=== PATIENT | male | born 1965 | race Caucasian/White ===

== ENCOUNTER 2020-03-14 19:01 | Emergency (ER) | payer MEDICAID ==
[~2020-03-14] VITALS: Ht 195.6 cm; Wt 95.4 kg
--- NOTE | 2020-03-14 19:11 | NUR ---
Note alan in EDM - 03/14/20 at 1912 by [facility] FROM HOME FOR FEVER, CHILLS, FATIGUE, BOCANEGRA, SORE THROAT, SOB,CP WITH DEEP BREATH FOR THE PAST 3 DAYS. EMS STARTED 20G IV RIGHT AC, 1,000 TYLENOL, 4MG ZOFRAN. PT IN BED IN GOWN WITH CONT CARDIC MONITOR, SPO2, BP Q 30 MIN, SIDE RAILS UP X2, CALL LIGHT IN REACH.
[2020-03-14] MEDS ORDERED: ACETAMINOPHEN 500 MG TABLET PO ONE (19:30)
[2020-03-14] MEDS ORDERED: SODIUM CHLORIDE 0.9% 1,000ML IVBOLUS ONE (19:30)
[2020-03-14 19:43] LABS: MEAN CORPUSCULAR HGB CONC 34.2 g/dL (33.2-36.2); MEAN PLATELET VOLUME 7.4 fL (7.4-10.4); PLATELET COUNT 271 x10^3/uL (130-400); RED BLOOD COUNT 4.68 x10^6/uL (4.38-5.82); RED CELL DISTRIBUTION WIDTH 13.4 % (9.4-14.8)
[2020-03-14] MEDS ORDERED: ACETAMINOPHEN 500 MG TABLET ONE (19:46)
[2020-03-14 19:47] LABS: MD YES
[2020-03-14 19:55] LABS: ALANINE AMINOTRANSFERASE 18 U/L (12-78); ALBUMIN 2.7 g/dL (3.4-5.0); ANION GAP 5 mmol/L (5-15); CALCIUM 8.7 mg/dL (8.5-10.1); CHLORIDE 104 mmol/L (98-107); CREATININE 0.92 mg/dL (0.7-1.3)
[2020-03-14 19:57] LABS: ALKALINE PHOSPHATASE 66 U/L (45-117); BILIRUBIN,TOTAL 0.6 mg/dL (0.2-1.0); TOTAL PROTEIN 7.1 g/dL (6.4-8.2)
[2020-03-14 20:48] VITALS: BP 103/51
[2020-03-14 20:52] LABS: BAND#(MANUAL) 0.55 x10^3/uL; BANDS%(MANUAL) 3 % (0-7); LYMPH#(MANUAL) 1.47 x10^3/uL (1-3.4); LYMPHS% (MANUAL) 8 % (22-44); MONOS#(MANUAL) 0.92 x10^3/uL (0.3-2.7); MONOS% (MANUAL) 5 % (2-9); REACTIVE LYMPHS # (MANUAL) 0.18 x10^3/uL (0-0); REACTIVE LYMPHS % (MANUAL) 1 % (0-0); SEG#(MANUAL) 15.27 x10^3/uL (1.8-6.8); SEGS% (MANUAL) 83 % (42-75)
[2020-03-14 20:53] LABS: <PLATELET ESTIMATE> ADEQUATE; <RBC MORPHOLOGY> NORMAL
[2020-03-14 20:54] LABS: <PLT MORPHOLOGY> NORMAL PLT MORPH
--- NOTE | 2020-03-14 20:54 | NUR ---
Report from RAUL aceves. Pt sleeping, RR equal and unlabored. Waiting for further orders from erp.
--- NOTE | 2020-03-14 21:24 | NUR ---
Pt c/o feeling nauseated, requesting medicine.
[2020-03-14] MEDS ORDERED: ONDANSETRON ODT 4 MG PO ONE (21:30)
[2020-03-14] MEDS ORDERED: ONDANSETRON ODT 4 MG ONE (21:44)
== END 2020-03-14 21:52 | disposition home or self-care (01) ==
LOC: ED 21:42
DX: U07.1 COVID-19 (principal); J18.9 Pneumonia, unspecified organism; J06.9 Acute upper respiratory infection, unspecified; R07.89 Other chest pain; R05 Cough; R50.9 Fever, unspecified; R09.81 Nasal congestion
CPT/HCPCS: 36415; 71045; 80053; 85025; 87635; 93005; 99285; J7030; Q0162

== ENCOUNTER 2020-09-23 08:01 | Inpatient (IN) | payer MEDICAID ==
[~2020-09-23] VITALS: Ht 195.6 cm; Wt 73.7 kg
--- NOTE | 2020-09-23 08:03 | NUR ---
pt biba with severe bilateral LE weakness, report taken from ems. pt c/o left hip and leg pain (shooting) and tingling/loss of sensation to bilateral legs x 2 days. pt states he is unable to move either leg, unable to move toes in last two days, has been stuck in his camper x 2 days. pt denies injury/trauma, hx sciatica. 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 pt a&o, resps even and unlabored. blanket provided. pt in gown. awaiting provider and orders.
[2020-09-23 08:53] LABS: BASOPHILS % (AUTO) 1 % (0-1); EOSINOPHILS % (AUTO) 2 % (1-7); LYMPHOCYTES % (AUTO) 18 % (22-44); MEAN CORPUSCULAR HEMOGLOBIN 30.5 pg (27.5-34.5); MEAN CORPUSCULAR HGB CONC 33.5 g/dL (33.2-36.2); MEAN PLATELET VOLUME 6.8 fL (7.4-10.4); MONOCYTES % (AUTO) 5 % (2-9); NEUTROPHILS % (AUTO) 74 % (42-75); PLATELET COUNT 304 x10^3/uL (130-400); RED BLOOD COUNT 5.02 x10^6/uL (4.38-5.82); RED CELL DISTRIBUTION WIDTH 13.8 % (9.4-14.8)
[2020-09-23 09:03] LABS: ALANINE AMINOTRANSFERASE 32 U/L (12-78); ALBUMIN 3.4 g/dL (3.4-5.0); ANION GAP 6 mmol/L (5-15); C-REACTIVE PROTEIN, QUANT 0.02 mg/dL (0.02-0.49); CALCIUM 8.8 mg/dL (8.5-10.1); CHLORIDE 111 mmol/L (98-107); CREATININE 0.75 mg/dL (0.7-1.3)
[2020-09-23 09:05] LABS: ALKALINE PHOSPHATASE 56 U/L (45-117); BILIRUBIN,TOTAL 0.3 mg/dL (0.2-1.0); TOTAL PROTEIN 6.8 g/dL (6.4-8.2)
--- NOTE | 2020-09-23 09:40 | NUR ---
pt instructed to void, urinal at bedside, RN to perform post void residual s/p void. pt verbalizes understanding. call light in reach.
[2020-09-23] MEDS ORDERED: KETOROLAC 30 MG/1 ML IM ONE (10:00)
--- NOTE | 2020-09-23 10:05 | NUR ---
PT SEEKING PAIN MED FOR LOWER EXT PAIN. PT UNABLE TO VOID. PT TAKEN TO MRI PRIOR TO RN RETURN WITH MEDICATION AND BLADDER SCAN, PT TO BE MEDICATED AND BLADDER SCANNED UPON RETURN.
[2020-09-23] MEDS ORDERED: KETOROLAC 60 MG/2 ML ONE (10:09)
[2020-09-23] MEDS ORDERED: MORPHINE SULFATE 4 MG/ML, 1ML ONE (10:21)
[2020-09-23] MEDS ORDERED: MORPHINE SULFATE 4 MG/ML, 1ML IVPush ONE (10:30)
--- NOTE | 2020-09-23 10:37 | NUR ---
GUIDE TRAVEL CALLED, STATES PT IS MOVING TOO MUCH IN MRI AND DEMANDING PAIN MEDICATION. LAW INFORMED. THIS RN MEDICATED PT IN MRI, MONITORED S/P ADMIN, PT TOLERATING MRI WELL AT THIS TIME.
--- NOTE | 2020-09-23 10:41 | NUR ---
Law notified that pt was unable to void prior to MRI, per settlement technician bladder is very enlarged and full, MD informed. ordered platt cath upon pt return.
[2020-09-23] MEDS ORDERED: LIDOCAINE 2%,20 ML JEL.PF.APP MM ONE ×2 (11:00→11:12)
--- NOTE | 2020-09-23 11:37 | NUR ---
PT UNABLE TO VOID WITH SECOND ATTEMPT UPON RETURN FROM MRI. BLADDER SCAN PERFORMED, BLADDER VOLUME READING >1000ML. ED AWARE. WILSON CATH INSERTED BY ALLIE JON, OBSERVED BY THIS RN. UROJECT ADMINISTERED PRIOR TO WILSON INSERTION BY ALLIE. STERILE TECHNIQUE MAINTAINED. AWAITING MRI READ AND DISPO.
--- NOTE | 2020-09-23 11:54 | NUR ---
PT IN MRI FOR THORACIC SPINE MRI.
--- NOTE | 2020-09-23 12:56 | NUR ---
pt remains in MRI
[2020-09-23] MEDS ORDERED: GADOTERATE 10 MMOL/20ML SYR ONE (13:11)
--- NOTE | 2020-09-23 13:14 | NUR ---
pt remains in MRI
[2020-09-23] MEDS ORDERED: hydrALAzine 20 MG/ML, 1ML IVPush PRN (13:30)
[2020-09-23] MEDS ORDERED: MELATONIN 5 MG TABLET PO PRN (13:30)
[2020-09-23] MEDS ORDERED: BISACODYL 10 MG SUPP PR PRN (13:30)
[2020-09-23] MEDS ORDERED: ONDANSETRON 2MG/ML, 2ML IVPush PRN (13:30)
--- NOTE | 2020-09-23 13:31 | NUR ---
report given to RAUL Scott who is assuming care, pt remains in MRI at this time.
--- NOTE | 2020-09-23 13:32 | NUR ---
REC REPORT PT IN MRI
[2020-09-23 14:30] LABS: MICROSCOPIC NOT IND
[2020-09-23] MEDS ORDERED: methylPREDNISolone SOD SUCC 125 MG/2 ML IVPush SCH (17:00)
[2020-09-23 18:22] LABS: HCT (SEDRATE) 44.8 % (39.2-51.8)
[2020-09-23] MEDS: GABAPENTIN 100 MG CAPSULE PO SCH ×2 (18:27→22:13)
[2020-09-23] MEDS ORDERED: AZITHROMYCIN 500 MG in SODIUM CHLORIDE 0.9% 250 ML IV SCH ×2 (18:30→21:00)
[2020-09-23] MEDS ORDERED: CEFTRIAXONE 2 GM in DEXTROSE 5% 50 ML IVPB SCH ×2 (18:30→21:00)
[2020-09-23] MEDS ORDERED: methylPREDNISolone SOD SUCC 125 MG/2 ML IVPush ONE (19:00)
[2020-09-23] MEDS ORDERED: methylPREDNISolone SOD SUCC 125 MG/2 ML ONE (19:00)
[2020-09-23 21:58] VITALS: BP 133/77
[2020-09-23] MEDS: CEFTRIAXONE 2 GM in DEXTROSE 5% 50 ML IVPB SCH (22:06)
[2020-09-23] MEDS: FAMOTIDINE 20 MG TABLET PO SCH (22:13)
[2020-09-23] MEDS ORDERED: OMEP20TA62 PO (22:27)
[2020-09-23] MEDS: AZITHROMYCIN 500 MG in SODIUM CHLORIDE 0.9% 250 ML IV SCH (22:46)
[2020-09-23] MEDS: OXYcodone IR 5MG TABLET PO PRN (23:33)
[2020-09-23] MEDS: TEMAZEPAM 15 MG CAPSULE PO PRN (23:33)
[2020-09-24 03:24] VITALS: BP 130/77
[2020-09-24 05:08] LABS: BASOPHILS % (AUTO) 1 % (0-1); EOSINOPHILS % (AUTO) 0 % (1-7); LYMPHOCYTES % (AUTO) 11 % (22-44); MEAN CORPUSCULAR HEMOGLOBIN 30.4 pg (27.5-34.5); MEAN CORPUSCULAR HGB CONC 33.9 g/dL (33.2-36.2); MEAN PLATELET VOLUME 7.2 fL (7.4-10.4); MONOCYTES % (AUTO) 1 % (2-9); NEUTROPHILS % (AUTO) 87 % (42-75); PLATELET COUNT 294 x10^3/uL (130-400); RED BLOOD COUNT 5.09 x10^6/uL (4.38-5.82); RED CELL DISTRIBUTION WIDTH 13.7 % (9.4-14.8)
[2020-09-24 05:26] LABS: ANION GAP 5 mmol/L (5-15); CHLORIDE 111 mmol/L (98-107)
[2020-09-24 05:29] LABS: CREATININE 0.95 mg/dL (0.7-1.3)
[2020-09-24 07:25] VITALS: BP 126/74
[2020-09-24] MEDS ORDERED: CEFTRIAXONE 1,000 MG IV ONE (09:00)
[2020-09-24] MEDS: GABAPENTIN 100 MG CAPSULE PO SCH (09:26)
[2020-09-24] MEDS: methylPREDNISolone SOD SUCC 125 MG/2 ML IVPush SCH ×2 (09:26→19:31)
[2020-09-24] MEDS: FAMOTIDINE 20 MG TABLET PO SCH ×2 (09:26→21:32)
[2020-09-24 12:28] VITALS: BP 140/73
[2020-09-24] MEDS ORDERED: GADOTERATE 10 MMOL/20ML SYR ONE (15:40)
[2020-09-24] MEDS: GABAPENTIN 300 MG CAPSULE PO SCH ×2 (16:42→21:32)
[2020-09-24] MEDS: OXYcodone IR 5MG TABLET PO PRN (19:59)
[2020-09-24] MEDS: CEFTRIAXONE 2 GM in DEXTROSE 5% 50 ML IVPB SCH (21:31)
[2020-09-24] MEDS: TEMAZEPAM 15 MG CAPSULE PO PRN (21:31)
[2020-09-24] MEDS: INSULIN REGULAR 100 UNITS/ML, 3ML VIAL SQ-INSULIN SCH (21:42)
[2020-09-24 21:47] VITALS: BP 169/91
[2020-09-24] MEDS: AZITHROMYCIN 500 MG in SODIUM CHLORIDE 0.9% 250 ML IV SCH (22:51)
[2020-09-25 00:04] VITALS: BP 158/96
[2020-09-25] MEDS: OXYcodone IR 5MG TABLET PO PRN ×3 (05:35→15:54)
[2020-09-25 07:07] VITALS: BP 172/98
[2020-09-25] MEDS: INSULIN REGULAR 100 UNITS/ML, 3ML VIAL SQ-INSULIN SCH ×4 (08:10→21:00)
[2020-09-25] MEDS: methylPREDNISolone SOD SUCC 125 MG/2 ML IVPush SCH ×2 (08:11→19:28)
[2020-09-25] MEDS: GABAPENTIN 300 MG CAPSULE PO SCH ×3 (08:11→21:08)
[2020-09-25] MEDS: ACETAMINOPHEN 325 MG TABLET PO PRN (08:11)
[2020-09-25] MEDS: POLYETHYLENE GLYCOL 17 GM PACKET PO PRN (08:11)
[2020-09-25] MEDS: DOCUSATE 100 MG CAPSULE PO PRN (08:11)
[2020-09-25] MEDS: FAMOTIDINE 20 MG TABLET PO SCH ×2 (08:11→21:08)
[2020-09-25] MEDS: MORPHINE SULFATE 4 MG/ML, 1ML IVPush PRN ×3 (08:44→19:28)
[2020-09-25 12:24] VITALS: BP 166/93
[2020-09-25 19:14] VITALS: BP 155/78
[2020-09-25] MEDS: CEFTRIAXONE 2 GM in DEXTROSE 5% 50 ML IVPB SCH (22:20)
[2020-09-25] MEDS: AZITHROMYCIN 500 MG in SODIUM CHLORIDE 0.9% 250 ML IV SCH (22:48)
[2020-09-26 00:41] VITALS: BP 142/77
[2020-09-26] MEDS: OXYcodone IR 5MG TABLET PO PRN ×2 (00:44→08:21)
[2020-09-26] MEDS: INSULIN REGULAR 100 UNITS/ML, 3ML VIAL SQ-INSULIN SCH ×4 (07:49→20:16)
[2020-09-26 07:50] VITALS: BP 118/73
[2020-09-26] MEDS: methylPREDNISolone SOD SUCC 125 MG/2 ML IVPush SCH ×2 (08:20→20:15)
[2020-09-26] MEDS: GABAPENTIN 300 MG CAPSULE PO SCH ×3 (08:20→20:15)
[2020-09-26] MEDS: FAMOTIDINE 20 MG TABLET PO SCH ×2 (08:21→20:14)
[2020-09-26] MEDS: MORPHINE SULFATE 4 MG/ML, 1ML IVPush PRN ×3 (10:16→20:15)
[2020-09-26] MEDS ORDERED: FLUMAZENIL 0.1 MG/1 ML, 5ML ONE (12:31)
[2020-09-26] MEDS ORDERED: NALOXONE 1 MG/ML, 2ML ONE (12:31)
[2020-09-26] MEDS ORDERED: MIDAZOLAM 1 MG/ML, 5ML ONE (12:31)
[2020-09-26] MEDS ORDERED: FENTANYL PF 100 MCG/2ML ONE (12:31)
[2020-09-26 14:03] VITALS: BP 136/85
[2020-09-26 14:14] LABS: GLUCOSE, CSF 82 mg/dL (40-80); TOTAL PROTEIN,CSF 115 mg/dL (15-45)
[2020-09-26 19:02] LABS: ANA SCREEN NEGATIVE (Negative)
[2020-09-26 19:15] VITALS: BP 154/70
[2020-09-26] MEDS: CEFTRIAXONE 2 GM in DEXTROSE 5% 50 ML IVPB SCH (21:41)
[2020-09-26] MEDS: AZITHROMYCIN 500 MG in SODIUM CHLORIDE 0.9% 250 ML IV SCH (22:24)
[2020-09-26] MEDS: TEMAZEPAM 15 MG CAPSULE PO PRN (23:28)
[2020-09-27] MEDS: MORPHINE SULFATE 4 MG/ML, 1ML IVPush PRN ×4 (00:04→20:28)
[2020-09-27 03:47] VITALS: BP 142/77
[2020-09-27] MEDS: GABAPENTIN 300 MG CAPSULE PO SCH (08:32)
[2020-09-27] MEDS: methylPREDNISolone SOD SUCC 125 MG/2 ML IVPush SCH ×2 (08:32→20:30)
[2020-09-27] MEDS: FAMOTIDINE 20 MG TABLET PO SCH ×2 (08:32→20:27)
[2020-09-27] MEDS: INSULIN REGULAR 100 UNITS/ML, 3ML VIAL SQ-INSULIN SCH ×4 (08:37→20:29)
[2020-09-27 08:51] VITALS: BP 135/78
[2020-09-27] MEDS: AMITRIPTYLINE 10 MG TABLET PO SCH ×2 (12:06→20:27)
[2020-09-27 15:29] VITALS: BP 136/63
[2020-09-27 18:33] VITALS: BP 155/65
[2020-09-27] MEDS: TEMAZEPAM 15 MG CAPSULE PO PRN (20:26)
[2020-09-27] MEDS: ACETAMINOPHEN 325 MG TABLET PO PRN (20:27)
[2020-09-27] MEDS: DOCUSATE 100 MG CAPSULE PO PRN (20:27)
[2020-09-27] MEDS: POLYETHYLENE GLYCOL 17 GM PACKET PO PRN (20:29)
[2020-09-27] MEDS: OXYcodone IR 5MG TABLET PO PRN (20:54)
[2020-09-27] MEDS: CEFTRIAXONE 2 GM in DEXTROSE 5% 50 ML IVPB SCH (21:56)
[2020-09-27] MEDS: AZITHROMYCIN 500 MG in SODIUM CHLORIDE 0.9% 250 ML IV SCH (23:21)
[2020-09-28 00:36] VITALS: BP 153/81
[2020-09-28] MEDS: MORPHINE SULFATE 4 MG/ML, 1ML IVPush PRN ×3 (05:49→23:37)
[2020-09-28] MEDS: OXYcodone IR 5MG TABLET PO PRN ×2 (06:39→22:14)
[2020-09-28 07:40] VITALS: BP 151/93
[2020-09-28] MEDS: INSULIN REGULAR 100 UNITS/ML, 3ML VIAL SQ-INSULIN SCH ×4 (08:05→20:54)
[2020-09-28] MEDS: POLYETHYLENE GLYCOL 17 GM PACKET PO PRN (09:24)
[2020-09-28] MEDS: FAMOTIDINE 20 MG TABLET PO SCH ×2 (09:24→20:49)
[2020-09-28 11:36] LABS: BASOPHILS % (AUTO) 0 % (0-1); EOSINOPHILS % (AUTO) 0 % (1-7); LYMPHOCYTES % (AUTO) 7 % (22-44); MEAN CORPUSCULAR HEMOGLOBIN 30.4 pg (27.5-34.5); MEAN CORPUSCULAR HGB CONC 33.6 g/dL (33.2-36.2); MEAN PLATELET VOLUME 7.4 fL (7.4-10.4); MONOCYTES % (AUTO) 5 % (2-9); NEUTROPHILS % (AUTO) 88 % (42-75); PLATELET COUNT 228 x10^3/uL (130-400); RED BLOOD COUNT 4.94 x10^6/uL (4.38-5.82); RED CELL DISTRIBUTION WIDTH 13.3 % (9.4-14.8)
[2020-09-28] MEDS: BISACODYL 10 MG SUPP PR SCH (14:22)
[2020-09-28 14:23] VITALS: BP 165/90
[2020-09-28] MEDS ORDERED: ALBUMIN HUMAN 5% IV ONE (14:30)
[2020-09-28] MEDS ORDERED: CALCIUM GLUCONATE 4.6 MEQ/10 ML IVPush ONE (14:30)
[2020-09-28] MEDS ORDERED: CALCIUM GLUCONATE 18.4 MEQ in SODIUM CHLORIDE 0.9% 100 ML IV ONE (15:00)
[2020-09-28] MEDS ORDERED: CALCIUM GLUCONATE 4.6 MEQ/10 ML IV ONE (15:30)
[2020-09-28 19:31] VITALS: BP 153/83
[2020-09-28] MEDS: AMITRIPTYLINE 10 MG TABLET PO SCH (20:49)
[2020-09-28] MEDS: CEFTRIAXONE 2 GM in DEXTROSE 5% 50 ML IVPB SCH (22:13)
[2020-09-28] MEDS: AZITHROMYCIN 500 MG in SODIUM CHLORIDE 0.9% 250 ML IV SCH (23:01)
[2020-09-29] VITALS (8 sets, daily range): BP systolic 129–174; BP diastolic 69–84
[2020-09-29] MEDS: MORPHINE SULFATE 4 MG/ML, 1ML IVPush PRN ×3 (05:27→22:15)
[2020-09-29] MEDS: DOCUSATE 100 MG CAPSULE PO PRN (05:27)
[2020-09-29] MEDS: INSULIN REGULAR 100 UNITS/ML, 3ML VIAL SQ-INSULIN SCH ×4 (07:00→20:34)
[2020-09-29 07:29] LABS: BASOPHILS % (AUTO) 0 % (0-1); EOSINOPHILS % (AUTO) 0 % (1-7); LYMPHOCYTES % (AUTO) 8 % (22-44); MEAN CORPUSCULAR HEMOGLOBIN 30.3 pg (27.5-34.5); MEAN CORPUSCULAR HGB CONC 33.6 g/dL (33.2-36.2); MEAN PLATELET VOLUME 7.4 fL (7.4-10.4); MONOCYTES % (AUTO) 3 % (2-9); NEUTROPHILS % (AUTO) 89 % (42-75); PLATELET COUNT 213 x10^3/uL (130-400); RED BLOOD COUNT 4.89 x10^6/uL (4.38-5.82); RED CELL DISTRIBUTION WIDTH 13.7 % (9.4-14.8)
[2020-09-29 07:37] LABS: ALANINE AMINOTRANSFERASE 23 U/L (12-78); ALBUMIN 3.1 g/dL (3.4-5.0); ANION GAP 5 mmol/L (5-15); CALCIUM 8.1 mg/dL (8.5-10.1); CHLORIDE 110 mmol/L (98-107); CREATININE 0.87 mg/dL (0.7-1.3)
[2020-09-29 07:40] LABS: ALKALINE PHOSPHATASE 22 U/L (45-117); BILIRUBIN,TOTAL 0.3 mg/dL (0.2-1.0); TOTAL PROTEIN 4.9 g/dL (6.4-8.2)
[2020-09-29] MEDS ORDERED: methylPREDNISolone SOD SUCC 125 MG/2 ML ONE (07:46)
[2020-09-29] MEDS: POLYETHYLENE GLYCOL 17 GM PACKET PO SCH (07:54)
[2020-09-29] MEDS: FAMOTIDINE 20 MG TABLET PO SCH ×2 (07:54→20:32)
[2020-09-29] MEDS: BISACODYL 10 MG SUPP PR SCH (08:18)
[2020-09-29] MEDS ORDERED: CALCIUM GLUCONATE 4.6 MEQ/10 ML IV ONE (09:00)
[2020-09-29] MEDS ORDERED: METOCLOPRAMIDE 5 MG/ML, 2ML IVPush ONE (09:30)
[2020-09-29] MEDS ORDERED: PINK LADY ENEMA 490 ML BOTTLE PR ONE (09:30)
[2020-09-29] MEDS: PREGABALIN 25 MG CAPSULE PO SCH ×3 (11:59→20:32)
[2020-09-29] MEDS: AMITRIPTYLINE 10 MG TABLET PO SCH (20:33)
[2020-09-29] MEDS: CEFTRIAXONE 2 GM in DEXTROSE 5% 50 ML IVPB SCH (22:15)
[2020-09-29] MEDS: AZITHROMYCIN 500 MG in SODIUM CHLORIDE 0.9% 250 ML IV SCH (22:58)
[2020-09-30] VITALS (17 sets, daily range): BP systolic 116–153; BP diastolic 70–84
[2020-09-30] MEDS: MORPHINE SULFATE 4 MG/ML, 1ML IVPush PRN ×3 (05:05→19:55)
[2020-09-30 05:34] LABS: BASOPHILS % (AUTO) 0 % (0-1); EOSINOPHILS % (AUTO) 0 % (1-7); LYMPHOCYTES % (AUTO) 9 % (22-44); MEAN CORPUSCULAR HEMOGLOBIN 30.3 pg (27.5-34.5); MEAN CORPUSCULAR HGB CONC 33.7 g/dL (33.2-36.2); MEAN PLATELET VOLUME 7.6 fL (7.4-10.4); MONOCYTES % (AUTO) 8 % (2-9); NEUTROPHILS % (AUTO) 83 % (42-75); PLATELET COUNT 207 x10^3/uL (130-400); RED BLOOD COUNT 4.82 x10^6/uL (4.38-5.82); RED CELL DISTRIBUTION WIDTH 13.6 % (9.4-14.8)
[2020-09-30 05:55] LABS: ALBUMIN 2.7 g/dL (3.4-5.0); ANION GAP 4 mmol/L (5-15); CALCIUM 8.5 mg/dL (8.5-10.1); CHLORIDE 107 mmol/L (98-107)
[2020-09-30 05:59] LABS: ALANINE AMINOTRANSFERASE 26 U/L (12-78); ALKALINE PHOSPHATASE 35 U/L (45-117); BILIRUBIN,TOTAL 0.3 mg/dL (0.2-1.0); CREATININE 0.87 mg/dL (0.7-1.3)
[2020-09-30] MEDS: INSULIN REGULAR 100 UNITS/ML, 3ML VIAL SQ-INSULIN SCH ×3 (07:00→16:00)
[2020-09-30] MEDS: PREGABALIN 25 MG CAPSULE PO SCH ×3 (07:29→20:48)
[2020-09-30] MEDS: POLYETHYLENE GLYCOL 17 GM PACKET PO SCH (07:29)
[2020-09-30] MEDS: BISACODYL 10 MG SUPP PR SCH (07:29)
[2020-09-30] MEDS: FAMOTIDINE 20 MG TABLET PO SCH ×2 (07:29→20:48)
[2020-09-30] MEDS ORDERED: CALCIUM GLUCONATE 4.6 MEQ/10 ML IV ONE (15:00)
[2020-09-30] MEDS ORDERED: DIPHENHYDRAMINE 50 MG/ML, 1ML IVPush ONE (16:00)
[2020-09-30] MEDS: METOCLOPRAMIDE 10MG TABLET PO SCH ×2 (17:35→20:47)
[2020-09-30] MEDS: AMITRIPTYLINE 10 MG TABLET PO SCH (20:47)
[2020-09-30] MEDS: TEMAZEPAM 15 MG CAPSULE PO PRN (20:48)
[2020-10-01] VITALS (23 sets, daily range): BP systolic 92–139; BP diastolic 55–79
[2020-10-01] MEDS: MORPHINE SULFATE 4 MG/ML, 1ML IVPush PRN (03:19)
[2020-10-01 04:43] LABS: MEAN CORPUSCULAR HEMOGLOBIN 30.5 pg (27.5-34.5); MEAN CORPUSCULAR HGB CONC 33.7 g/dL (33.2-36.2); MEAN PLATELET VOLUME 7.6 fL (7.4-10.4); PLATELET COUNT 156 x10^3/uL (130-400); RED BLOOD COUNT 4.78 x10^6/uL (4.38-5.82); RED CELL DISTRIBUTION WIDTH 13.8 % (9.4-14.8)
[2020-10-01 04:54] LABS: ALBUMIN 2.4 g/dL (3.4-5.0); ANION GAP 1 mmol/L (5-15); CALCIUM 8.1 mg/dL (8.5-10.1); CHLORIDE 104 mmol/L (98-107)
[2020-10-01 04:58] LABS: ALANINE AMINOTRANSFERASE 42 U/L (12-78); ALKALINE PHOSPHATASE 42 U/L (45-117); BILIRUBIN,TOTAL 0.4 mg/dL (0.2-1.0); CREATININE 0.73 mg/dL (0.7-1.3); TOTAL PROTEIN 4.9 g/dL (6.4-8.2)
[2020-10-01 05:44] LABS: <PLATELET ESTIMATE> DECREASED; <PLT MORPHOLOGY> NORMAL PLT MORPH; <RBC MORPHOLOGY> NORMAL; BAND#(MANUAL) 0.25 x10^3/uL; BANDS%(MANUAL) 2 % (0-7); LYMPH#(MANUAL) 2.73 x10^3/uL (1-3.4); LYMPHS% (MANUAL) 22 % (22-44); METAMYELOCYTES# (MANUAL) 0.12 x10^3/uL (0-0); METAMYELOCYTES% (MANUAL) 1 % (0-1); MONOS#(MANUAL) 0.62 x10^3/uL (0.3-2.7); MONOS% (MANUAL) 5 % (2-9)
[2020-10-01 05:46] LABS: MYELOCYTES# (MANUAL) 0.12 x10^3/uL (0-0); MYELOCYTES% (MANUAL) 1 % (0-0); SEG#(MANUAL) 8.56 x10^3/uL (1.8-6.8); SEGS% (MANUAL) 69 % (42-75)
[2020-10-01] MEDS: METOCLOPRAMIDE 10MG TABLET PO SCH ×4 (06:04→21:11)
[2020-10-01] MEDS: FAMOTIDINE 20 MG TABLET PO SCH ×2 (08:32→21:11)
[2020-10-01] MEDS: BISACODYL 10 MG SUPP PR SCH (08:32)
[2020-10-01] MEDS: PREGABALIN 25 MG CAPSULE PO SCH ×3 (08:32→21:11)
[2020-10-01] MEDS: POLYETHYLENE GLYCOL 17 GM PACKET PO SCH (08:32)
[2020-10-01] MEDS: LORazepam 2 MG/ML, 1ML IVPush PRN ×3 (08:42→21:10)
[2020-10-01] MEDS ORDERED: CALCIUM GLUCONATE 4.6 MEQ/10 ML IVPush ONE (12:00)
[2020-10-01] MEDS ORDERED: DIPHENHYDRAMINE 50 MG/ML, 1ML IVPush ONE (12:00)
[2020-10-01] MEDS ORDERED: PINK LADY ENEMA 490 ML BOTTLE PR ONE (13:30)
[2020-10-01] MEDS ORDERED: DIPHENHYDRAMINE 50 MG/ML, 1ML ONE (16:40)
[2020-10-01] MEDS: AMITRIPTYLINE 10 MG TABLET PO SCH (21:10)
[2020-10-01] MEDS: TEMAZEPAM 15 MG CAPSULE PO PRN (21:10)
[2020-10-02] VITALS (9 sets, daily range): BP systolic 92–134; BP diastolic 55–80
[2020-10-02 05:12] LABS: BASOPHILS % (AUTO) 0 % (0-1); EOSINOPHILS % (AUTO) 4 % (1-7); LYMPHOCYTES % (AUTO) 18 % (22-44); MEAN CORPUSCULAR HEMOGLOBIN 30.2 pg (27.5-34.5); MEAN PLATELET VOLUME 7.5 fL (7.4-10.4); MONOCYTES % (AUTO) 10 % (2-9); NEUTROPHILS % (AUTO) 68 % (42-75); PLATELET COUNT 146 x10^3/uL (130-400); RED BLOOD COUNT 4.95 x10^6/uL (4.38-5.82)
[2020-10-02 05:20] LABS: ALANINE AMINOTRANSFERASE 54 U/L (12-78); ALBUMIN 2.5 g/dL (3.4-5.0); ANION GAP 3 mmol/L (5-15); CALCIUM 8.1 mg/dL (8.5-10.1); CHLORIDE 103 mmol/L (98-107); CREATININE 0.78 mg/dL (0.7-1.3)
[2020-10-02 05:22] LABS: ALKALINE PHOSPHATASE 42 U/L (45-117); BILIRUBIN,TOTAL 0.4 mg/dL (0.2-1.0)
[2020-10-02] MEDS: MORPHINE SULFATE 4 MG/ML, 1ML IVPush PRN ×3 (05:27→17:24)
[2020-10-02] MEDS: POLYETHYLENE GLYCOL 17 GM PACKET PO SCH (08:15)
[2020-10-02] MEDS: PREGABALIN 25 MG CAPSULE PO SCH ×3 (08:15→20:07)
[2020-10-02] MEDS: FAMOTIDINE 20 MG TABLET PO SCH ×2 (08:15→20:08)
[2020-10-02] MEDS: METOCLOPRAMIDE 10MG TABLET PO SCH ×4 (08:15→20:07)
[2020-10-02] MEDS: LORazepam 2 MG/ML, 1ML IVPush PRN ×2 (08:16→20:07)
[2020-10-02] MEDS: BISACODYL 10 MG SUPP PR SCH (08:17)
[2020-10-02] MEDS ORDERED: DIPHENHYDRAMINE 50 MG/ML, 1ML IVPush ONE (09:00)
[2020-10-02] MEDS ORDERED: CALCIUM GLUCONATE 4.6 MEQ/10 ML IV ONE (09:00)
[2020-10-02] MEDS ORDERED: ALBUMIN HUMAN 5% 3,000 ML IV ONE (09:00)
[2020-10-02] MEDS ORDERED: ALBUMIN HUMAN 25% 100 ML IV ONE (11:30)
[2020-10-02] MEDS: TEMAZEPAM 15 MG CAPSULE PO PRN (20:08)
[2020-10-02] MEDS: AMITRIPTYLINE 25 MG TABLET PO SCH (20:08)
[2020-10-03 00:25] VITALS: BP 106/68
[2020-10-03] MEDS: MORPHINE SULFATE 4 MG/ML, 1ML IVPush PRN ×2 (03:13→07:54)
[2020-10-03] MEDS ORDERED: FUROSEMIDE 20 MG/2 ML IV ONE (07:30)
[2020-10-03] MEDS: LORazepam 2 MG/ML, 1ML IVPush PRN (07:54)
[2020-10-03] MEDS: FAMOTIDINE 20 MG TABLET PO SCH ×2 (07:54→20:23)
[2020-10-03] MEDS: METOCLOPRAMIDE 10MG TABLET PO SCH ×4 (07:55→22:54)
[2020-10-03] MEDS: PREGABALIN 25 MG CAPSULE PO SCH ×3 (07:55→22:54)
[2020-10-03] MEDS: POLYETHYLENE GLYCOL 17 GM PACKET PO SCH (07:56)
[2020-10-03] MEDS: BISACODYL 10 MG SUPP PR SCH (07:56)
[2020-10-03 08:54] VITALS: BP 105/70
[2020-10-03] MEDS: OXYcodone IR 5MG TABLET PO PRN ×3 (11:15→22:54)
[2020-10-03] MEDS ORDERED: SODIUM CHLORIDE 0.9%, 500ML IVBOLUS ONE (14:30)
[2020-10-03 14:44] VITALS: BP 95/60
[2020-10-03 19:06] VITALS: BP 112/64
[2020-10-03] MEDS: AMITRIPTYLINE 25 MG TABLET PO SCH (20:23)
[2020-10-03] MEDS: TEMAZEPAM 15 MG CAPSULE PO PRN (20:23)
[2020-10-04 00:55] VITALS: BP 116/69
[2020-10-04] MEDS: OXYcodone IR 5MG TABLET PO PRN ×4 (04:04→20:08)
[2020-10-04 08:10] VITALS: BP 110/70
[2020-10-04] MEDS: PREGABALIN 25 MG CAPSULE PO SCH ×3 (08:36→20:11)
[2020-10-04] MEDS: METOCLOPRAMIDE 10MG TABLET PO SCH ×4 (08:36→20:11)
[2020-10-04] MEDS: FAMOTIDINE 20 MG TABLET PO SCH ×2 (08:36→20:11)
[2020-10-04] MEDS: POLYETHYLENE GLYCOL 17 GM PACKET PO SCH (08:38)
[2020-10-04] MEDS: BISACODYL 10 MG SUPP PR SCH (08:38)
[2020-10-04 11:04] VITALS: BP 101/70
[2020-10-04 13:17] VITALS: BP 120/75
[2020-10-04 19:03] VITALS: BP 109/62
[2020-10-04] MEDS: TEMAZEPAM 15 MG CAPSULE PO PRN (20:15)
[2020-10-04] MEDS ORDERED: AMITRIPTYLINE 50 MG TABLET PO SCH (21:00)
[2020-10-05 01:56] VITALS: BP 114/69
[2020-10-05] MEDS: OXYcodone IR 5MG TABLET PO PRN ×3 (04:27→17:03)
[2020-10-05] MEDS: METOCLOPRAMIDE 10MG TABLET PO SCH ×3 (06:13→17:03)
[2020-10-05 07:28] VITALS: BP 102/69
[2020-10-05] MEDS: BISACODYL 10 MG SUPP PR SCH (07:34)
[2020-10-05] MEDS: POLYETHYLENE GLYCOL 17 GM PACKET PO SCH (07:34)
[2020-10-05] MEDS: PREGABALIN 25 MG CAPSULE PO SCH (07:34)
[2020-10-05] MEDS: FAMOTIDINE 20 MG TABLET PO SCH (07:34)
[2020-10-05] MEDS: ACETAMINOPHEN 325 MG TABLET PO PRN (07:34)
[2020-10-05] MEDS: LORazepam 2 MG/ML, 1ML IVPush PRN ×2 (07:35→13:22)
[2020-10-05] MEDS ORDERED: PREGABALIN 25 MG CAPSULE PO SCH (12:00)
[2020-10-05 12:56] VITALS: BP 121/77
[2020-10-05] MEDS ORDERED: PREG100C PO (16:11)
[2020-10-05] MEDS ORDERED: MORP-30 PO (16:11)
[2020-10-05] MEDS ORDERED: PREG50CA PO (16:22)
[2020-10-05] MEDS ORDERED: PREGABALIN 100 MG CAPSULE PO SCH (21:00)
[2020-10-07] MEDS ORDERED: CARV3.1212 PO (10:23)
== END 2020-10-05 18:17 | DRG 97 ==
LOC: SUATTDRO 13:13 → ED 14:42 → EDIP 14:47 → 4WST 15:38 → 4EST 10-05 10:05
PROVIDERS: ADMIT Internal Medicine; ATTEND Hospitalist
PROC: 00JU3ZZ Inspection of Spinal Canal, Percutaneous Approach (ICD-10-PCS; principal; 2020-09-26)
PROC: 0T9B30Z Drainage of Bladder with Drainage Device, Percutaneous Approach (ICD-10-PCS; 2020-09-26)
PROC: 02HV33Z Insertion of Infusion Device into Superior Vena Cava, Percutaneous Approach (ICD-10-PCS; 2020-09-28)
PROC: B548ZZA Ultrasonography of Superior Vena Cava, Guidance (ICD-10-PCS; 2020-09-28)
DX: G37.3 Acute transverse myelitis in demyelinating disease of central nervous system (principal); J18.9 Pneumonia, unspecified organism; F19.20 Other psychoactive substance dependence, uncomplicated; K56.7 Ileus, unspecified; E83.39 Other disorders of phosphorus metabolism; F12.10 Cannabis abuse, uncomplicated; F17.200 Nicotine dependence, unspecified, uncomplicated; G82.20 Paraplegia, unspecified; Z20.822 Contact with and (suspected) exposure to COVID-19; M54.30 Sciatica, unspecified side; R32 Unspecified urinary incontinence; Z79.899 Other long term (current) drug therapy; K29.70 Gastritis, unspecified, without bleeding; I95.9 Hypotension, unspecified; Z90.49 Acquired absence of other specified parts of digestive tract; E11.9 Type 2 diabetes mellitus without complications; I10 Essential (primary) hypertension; I99.9 Unspecified disorder of circulatory system; E78.5 Hyperlipidemia, unspecified; Z79.891 Long term (current) use of opiate analgesic; Z79.01 Long term (current) use of anticoagulants; Z80.8 Family history of malignant neoplasm of other organs or systems; Z80.9 Family history of malignant neoplasm, unspecified
CPT/HCPCS: 36415; 36514; 36556; 62270; 62328; 70553; 72157; 72158; 76937; 80048; 80053; 81003; 82040; 82042; 82164; 82550; 82784; 82945; 82962; 83735; 83873; 84100; 84155; 84156; 84157; 84165; 84166; 85025; 85384; 85651; 86038; 86140; 86255; 86645; 86694; 86695; 86696; 86762; 86777; 86778; 86850; 86900; 87806; 89051; 96374; 96375; 96376; 99291; G0378; J0456; J0610; J0696; J1815; J2250; J2405; J2930; J3010; P9045; P9047; U0005; A9575; C1751; G0475; J0360; J1200; J1642; J1940; J2060; J2270; J2310; J2765; J7040; J7050; P9017; Q0181; U0003

== ENCOUNTER 2020-10-06 01:47 | Inpatient (IN) | payer MEDICAID ==
[~2020-10-06] VITALS: Ht 195.6 cm; Wt 97.5 kg
[~2020-10-06 01:47] MED LIST: MORP-30 PO; OMEP20TA62 PO; PREG100C PO; PREG50CA PO
--- NOTE | 2020-10-06 01:51 | NUR ---
INITIAL PT CONTACT. PT FATUMA C/O UNCONTROLLED PAIN. PT D/C FROM HOSPITAL A FEW HOURS AGO, SENT TO [facility], THEY ARE UNABLE TO HAVE SCRIPT FOR PAIN MEDICATION FILLED SO UNABLE TO ACCEPT PT AT FACILITY PER EMS. EMS STATES PT "I WAS ON 30MG OF MORPHINE A DAY. THIS ALL STARTED AFTER I HAD A PUNCTURE ON MY BACK 2 WEEKS AGO, I CAN'T WALK, I BARELY USE A WHEELCHAIR THE RIGHT WAY. MY LEGS DONT MOVE WELL AT ALL AND I HAVE SOME NUMBNESS TOO." PT GIVEN 4MG MORPHINE WITH EMS, NO RELIEF OR CHANGE IN PAIN. PT SUPINE ON GURNEY, IN OBVIOUS DISCOMFORT, UNABLE TO STAY STILL ON GURNEY. PT PLACED ON CONTINUOUS MONITORING. CALL LIGHT AND PERSONAL BELONGINGS WITHIN REACH.
[2020-10-06] MEDS ORDERED: PREGABALIN 100 MG CAPSULE PO ONE (02:30)
--- NOTE | 2020-10-06 03:04 | NUR ---
Pt to be admitted to MEDICAL, room 378. Report called to SAULO CARTER.
[2020-10-06] MEDS ORDERED: ONDANSETRON 2MG/ML, 2ML IVPush PRN ×2 (03:30→09:00)
[2020-10-06] MEDS ORDERED: MORPHINE SULFATE 4 MG/ML, 1ML IVPush PRN (03:30)
[2020-10-06] MEDS ORDERED: SODIUM CHLORIDE FLUSH 10ML SYR IVF PRN (03:30)
[2020-10-06 03:56] VITALS: BP 153/95
[2020-10-06] MEDS: PREGABALIN 100 MG CAPSULE PO SCH ×2 (08:06→20:10)
[2020-10-06] MEDS ORDERED: ONDANSETRON ODT 4 MG PO PRN (09:00)
[2020-10-06] MEDS: SENNA/DOCUSATE TABLET PO SCH (09:38)
[2020-10-06] MEDS: HEPARIN 5,000 UNITS/ML, 1ML SQ SCH ×2 (09:38→17:35)
[2020-10-06] MEDS: ACETAMINOPHEN 325 MG TABLET PO PRN (09:39)
[2020-10-06 13:38] VITALS: BP 164/81
[2020-10-06 20:02] VITALS: BP 171/99
[2020-10-06] MEDS ORDERED: OXYcodone IR 5MG TABLET PO ONE (21:30)
[2020-10-06] MEDS ORDERED: MELATONIN 5 MG TABLET PO ONE (21:30)
[2020-10-06 21:38] VITALS: BP 147/82
[2020-10-07 02:44] VITALS: BP 149/95
[2020-10-07] MEDS: HEPARIN 5,000 UNITS/ML, 1ML SQ SCH ×3 (02:46→17:48)
[2020-10-07 07:50] VITALS: BP 144/88
[2020-10-07] MEDS: ACETAMINOPHEN 325 MG TABLET PO PRN ×2 (08:33→17:47)
[2020-10-07] MEDS: PREGABALIN 100 MG CAPSULE PO SCH ×2 (08:33→20:22)
[2020-10-07] MEDS: SENNA/DOCUSATE TABLET PO SCH (08:41)
[2020-10-07] MEDS: CARVEDILOL 3.125 MG TABLET PO SCH ×2 (08:46→17:48)
[2020-10-07] MEDS ORDERED: CARV3.1212 PO ×2 (10:23)
[2020-10-07] MEDS ORDERED: SENN-211 PO (10:23)
[2020-10-07 14:00] VITALS: BP 148/72
[2020-10-07 22:06] VITALS: BP 115/69
[2020-10-08 00:59] VITALS: BP 142/82
[2020-10-08] MEDS: HEPARIN 5,000 UNITS/ML, 1ML SQ SCH ×3 (02:00→18:00)
[2020-10-08] MEDS: CARVEDILOL 3.125 MG TABLET PO SCH (05:49)
[2020-10-08] MEDS: ACETAMINOPHEN 325 MG TABLET PO PRN (05:53)
[2020-10-08 08:55] VITALS: BP 152/87
[2020-10-08] MEDS: PREGABALIN 100 MG CAPSULE PO SCH ×2 (10:53→20:35)
[2020-10-08] MEDS: SENNA/DOCUSATE TABLET PO SCH (10:53)
[2020-10-08 14:10] VITALS: BP 162/94
[2020-10-08] MEDS: CARVEDILOL 6.25 MG TABLET PO SCH (18:13)
[2020-10-08 21:02] VITALS: BP 120/73
[2020-10-09] MEDS: HEPARIN 5,000 UNITS/ML, 1ML SQ SCH ×3 (01:41→18:00)
[2020-10-09 02:55] VITALS: BP 129/79
[2020-10-09] MEDS: CARVEDILOL 6.25 MG TABLET PO SCH ×2 (05:51→18:00)
[2020-10-09 07:33] VITALS: BP 120/74
[2020-10-09] MEDS: PREGABALIN 100 MG CAPSULE PO SCH ×2 (10:34→20:40)
[2020-10-09] MEDS: SENNA/DOCUSATE TABLET PO SCH (10:35)
[2020-10-09] MEDS: ACETAMINOPHEN 325 MG TABLET PO PRN (10:59)
[2020-10-09 13:02] VITALS: BP 122/75
[2020-10-09 19:50] VITALS: BP 122/66
[2020-10-10] MEDS: ACETAMINOPHEN 325 MG TABLET PO PRN ×4 (00:35→19:45)
[2020-10-10 01:11] VITALS: BP 153/89
[2020-10-10] MEDS: HEPARIN 5,000 UNITS/ML, 1ML SQ SCH ×4 (02:00→15:14)
[2020-10-10] MEDS: CARVEDILOL 6.25 MG TABLET PO SCH ×2 (05:42→17:26)
[2020-10-10 06:40] VITALS: BP 120/80
[2020-10-10] MEDS: SENNA/DOCUSATE TABLET PO SCH (09:33)
[2020-10-10] MEDS: PREGABALIN 100 MG CAPSULE PO SCH ×2 (09:33→20:36)
[2020-10-10 14:40] VITALS: BP 125/84
[2020-10-10 20:19] VITALS: BP 120/73
[2020-10-11 00:50] VITALS: BP 139/84
[2020-10-11] MEDS: HEPARIN 5,000 UNITS/ML, 1ML SQ SCH ×4 (01:31→21:38)
[2020-10-11] MEDS: ACETAMINOPHEN 325 MG TABLET PO PRN ×2 (01:34→09:29)
[2020-10-11] MEDS: CARVEDILOL 6.25 MG TABLET PO SCH ×2 (06:02→17:26)
[2020-10-11] MEDS: PREGABALIN 100 MG CAPSULE PO SCH ×2 (09:25→20:09)
[2020-10-11] MEDS: SENNA/DOCUSATE TABLET PO SCH (09:26)
[2020-10-11 10:52] LABS: BASOPHILS % (AUTO) 1 % (0-1); EOSINOPHILS % (AUTO) 2 % (1-7); LYMPHOCYTES % (AUTO) 19 % (22-44); MEAN CORPUSCULAR HEMOGLOBIN 30.6 pg (27.5-34.5); MEAN CORPUSCULAR HGB CONC 34.2 g/dL (33.2-36.2); MEAN PLATELET VOLUME 6.2 fL (7.4-10.4); MONOCYTES % (AUTO) 9 % (2-9); NEUTROPHILS % (AUTO) 69 % (42-75); PLATELET COUNT 284 x10^3/uL (130-400); RED BLOOD COUNT 4.89 x10^6/uL (4.38-5.82); RED CELL DISTRIBUTION WIDTH 14.1 % (9.4-14.8)
[2020-10-11 11:02] LABS: ANION GAP 4 mmol/L (5-15); CALCIUM 9.3 mg/dL (8.5-10.1); CHLORIDE 102 mmol/L (98-107)
[2020-10-11 11:03] LABS: CREATININE 0.86 mg/dL (0.7-1.3)
[2020-10-11 19:30] VITALS: BP 130/74
[2020-10-11] MEDS ORDERED: MAGNESIUM CITRATE 300ML ORAL SOL PO ONE (20:00)
[2020-10-11] MEDS: TEMAZEPAM 15 MG CAPSULE PO PRN (20:09)
[2020-10-11] MEDS: BISACODYL 10 MG SUPP PR PRN (20:14)
[2020-10-12 00:26] VITALS: BP 163/110
[2020-10-12] MEDS: ACETAMINOPHEN 325 MG TABLET PO PRN ×3 (00:37→19:48)
[2020-10-12 00:39] VITALS: BP 143/85
[2020-10-12] MEDS: CARVEDILOL 6.25 MG TABLET PO SCH ×2 (06:11→18:10)
[2020-10-12 07:21] VITALS: BP 127/83
[2020-10-12] MEDS: PREGABALIN 100 MG CAPSULE PO SCH (09:19)
[2020-10-12] MEDS: SENNA/DOCUSATE TABLET PO SCH (09:19)
[2020-10-12] MEDS: HEPARIN 5,000 UNITS/ML, 1ML SQ SCH ×2 (09:20→17:17)
[2020-10-12 13:27] VITALS: BP 128/80
[2020-10-12] MEDS: PREGABALIN 150 MG CAPSULE PO SCH (19:48)
[2020-10-12] MEDS: TEMAZEPAM 15 MG CAPSULE PO PRN (19:51)
[2020-10-12 19:54] VITALS: BP 117/82
[2020-10-12] MEDS ORDERED: PREGABALIN 100 MG CAPSULE PO SCH (21:00)
[2020-10-13 01:09] VITALS: BP 127/81
[2020-10-13] MEDS: HEPARIN 5,000 UNITS/ML, 1ML SQ SCH ×3 (01:34→17:00)
[2020-10-13] MEDS: ACETAMINOPHEN 325 MG TABLET PO PRN ×4 (05:00→23:58)
[2020-10-13] MEDS: CARVEDILOL 6.25 MG TABLET PO SCH ×2 (05:02→17:14)
[2020-10-13 06:52] VITALS: BP 119/83
[2020-10-13] MEDS: PREGABALIN 150 MG CAPSULE PO SCH ×2 (09:27→20:46)
[2020-10-13] MEDS: SENNA/DOCUSATE TABLET PO SCH (09:27)
[2020-10-13] MEDS: DULOXETINE 20 MG CAPSULE.DR PO SCH ×2 (11:03→20:46)
[2020-10-13] MEDS: TIZANIDINE 4MG TABLET PO SCH ×2 (12:12→20:46)
[2020-10-13 12:30] VITALS: BP 122/71
[2020-10-13 19:59] VITALS: BP 103/63
[2020-10-13] MEDS: TEMAZEPAM 15 MG CAPSULE PO PRN (21:58)
[2020-10-14 01:04] VITALS: BP 133/86
[2020-10-14] MEDS: HEPARIN 5,000 UNITS/ML, 1ML SQ SCH ×3 (01:08→17:30)
[2020-10-14] MEDS ORDERED: OXYcodone IR 5MG TABLET PO ONE (02:00)
[2020-10-14] MEDS: CARVEDILOL 6.25 MG TABLET PO SCH ×2 (05:05→17:42)
[2020-10-14] MEDS: TIZANIDINE 4MG TABLET PO SCH ×3 (05:05→20:54)
[2020-10-14 05:06] VITALS: BP 138/80
[2020-10-14] MEDS: ACETAMINOPHEN 325 MG TABLET PO PRN ×3 (07:00→20:54)
[2020-10-14 07:40] VITALS: BP 150/90
[2020-10-14] MEDS: PREGABALIN 150 MG CAPSULE PO SCH ×2 (08:29→20:54)
[2020-10-14] MEDS: DULOXETINE 20 MG CAPSULE.DR PO SCH ×2 (08:29→20:54)
[2020-10-14] MEDS: SENNA/DOCUSATE TABLET PO SCH (08:29)
[2020-10-14 14:13] VITALS: BP 137/90
[2020-10-14 20:40] VITALS: BP 115/77
[2020-10-14] MEDS: TEMAZEPAM 15 MG CAPSULE PO PRN (20:54)
[2020-10-15 01:34] VITALS: BP 146/91
[2020-10-15] MEDS: ACETAMINOPHEN 325 MG TABLET PO PRN ×2 (01:40→10:15)
[2020-10-15] MEDS: HEPARIN 5,000 UNITS/ML, 1ML SQ SCH ×3 (02:00→18:00)
[2020-10-15] MEDS: TIZANIDINE 4MG TABLET PO SCH ×3 (05:45→21:36)
[2020-10-15] MEDS: CARVEDILOL 6.25 MG TABLET PO SCH ×2 (05:48→18:45)
[2020-10-15 07:59] VITALS: BP 104/69
[2020-10-15] MEDS: DULOXETINE 20 MG CAPSULE.DR PO SCH ×3 (09:00→21:36)
[2020-10-15] MEDS: PREGABALIN 150 MG CAPSULE PO SCH ×2 (09:56→21:36)
[2020-10-15] MEDS: SENNA/DOCUSATE TABLET PO SCH (09:56)
[2020-10-15 13:59] VITALS: BP 128/82
[2020-10-15 20:32] VITALS: BP 128/74
[2020-10-15] MEDS: TEMAZEPAM 15 MG CAPSULE PO PRN (21:36)
[2020-10-16] MEDS: HEPARIN 5,000 UNITS/ML, 1ML SQ SCH ×3 (01:10→16:04)
[2020-10-16] MEDS: ACETAMINOPHEN 325 MG TABLET PO PRN (02:57)
[2020-10-16 03:03] VITALS: BP 156/80
[2020-10-16] MEDS: CARVEDILOL 6.25 MG TABLET PO SCH ×2 (05:37→19:12)
[2020-10-16] MEDS: TIZANIDINE 4MG TABLET PO SCH ×3 (05:37→21:09)
[2020-10-16 07:15] VITALS: BP 136/84
[2020-10-16] MEDS: PREGABALIN 150 MG CAPSULE PO SCH ×2 (10:02→21:09)
[2020-10-16] MEDS: SENNA/DOCUSATE TABLET PO SCH (10:02)
[2020-10-16] MEDS: DULOXETINE 20 MG CAPSULE.DR PO SCH ×3 (10:02→21:10)
[2020-10-16 12:45] VITALS: BP 131/79
[2020-10-16 19:14] VITALS: BP 129/75
[2020-10-16 19:46] VITALS: BP 105/61
[2020-10-16] MEDS: TEMAZEPAM 15 MG CAPSULE PO PRN (21:09)
[2020-10-17 00:58] VITALS: BP 131/80
[2020-10-17] MEDS: ACETAMINOPHEN 325 MG TABLET PO PRN ×2 (01:55→20:35)
[2020-10-17] MEDS: HEPARIN 5,000 UNITS/ML, 1ML SQ SCH ×3 (02:00→16:55)
[2020-10-17] MEDS: CARVEDILOL 6.25 MG TABLET PO SCH ×2 (05:01→17:09)
[2020-10-17] MEDS: TIZANIDINE 4MG TABLET PO SCH ×3 (05:01→20:35)
[2020-10-17 07:11] VITALS: BP 118/79
[2020-10-17] MEDS: DULOXETINE 20 MG CAPSULE.DR PO SCH ×3 (07:43→20:36)
[2020-10-17] MEDS: PREGABALIN 150 MG CAPSULE PO SCH ×3 (07:43→20:36)
[2020-10-17] MEDS: SENNA/DOCUSATE TABLET PO SCH (07:43)
[2020-10-17 12:43] VITALS: BP 122/81
[2020-10-17 20:08] VITALS: BP 115/77
[2020-10-17] MEDS: TEMAZEPAM 15 MG CAPSULE PO PRN (20:35)
[2020-10-18 00:49] VITALS: BP 124/84
[2020-10-18] MEDS: HEPARIN 5,000 UNITS/ML, 1ML SQ SCH ×3 (01:09→18:00)
[2020-10-18] MEDS: TIZANIDINE 4MG TABLET PO SCH ×3 (05:18→21:38)
[2020-10-18] MEDS: CARVEDILOL 6.25 MG TABLET PO SCH ×2 (05:18→18:42)
[2020-10-18 08:38] VITALS: BP 120/82
[2020-10-18] MEDS: PREGABALIN 150 MG CAPSULE PO SCH ×3 (10:15→21:38)
[2020-10-18] MEDS: SENNA/DOCUSATE TABLET PO SCH (10:15)
[2020-10-18] MEDS: DULOXETINE 20 MG CAPSULE.DR PO SCH ×3 (10:16→21:00)
[2020-10-18 14:06] VITALS: BP 124/75
[2020-10-18 18:40] VITALS: BP 113/68
[2020-10-18 19:44] VITALS: BP 111/67
[2020-10-18] MEDS: TEMAZEPAM 15 MG CAPSULE PO PRN (21:38)
[2020-10-18] MEDS: ACETAMINOPHEN 325 MG TABLET PO PRN (22:06)
[2020-10-19 00:39] VITALS: BP 110/70
[2020-10-19] MEDS: HEPARIN 5,000 UNITS/ML, 1ML SQ SCH ×3 (01:34→18:00)
[2020-10-19] MEDS: TIZANIDINE 4MG TABLET PO SCH ×3 (05:53→21:04)
[2020-10-19] MEDS: CARVEDILOL 6.25 MG TABLET PO SCH ×2 (05:53→18:23)
[2020-10-19 07:46] VITALS: BP 100/62
[2020-10-19 08:38] LABS: MEAN CORPUSCULAR HEMOGLOBIN 30.6 pg (27.5-34.5); MEAN CORPUSCULAR HGB CONC 34.5 g/dL (33.2-36.2); MEAN PLATELET VOLUME 6.8 fL (7.4-10.4); PLATELET COUNT 296 x10^3/uL (130-400); RED BLOOD COUNT 4.15 x10^6/uL (4.38-5.82); RED CELL DISTRIBUTION WIDTH 14.1 % (9.4-14.8)
[2020-10-19 08:49] LABS: ALANINE AMINOTRANSFERASE 26 U/L (12-78); ALBUMIN 2.3 g/dL (3.4-5.0); ANION GAP 5 mmol/L (5-15); CALCIUM 8.9 mg/dL (8.5-10.1); CHLORIDE 100 mmol/L (98-107)
[2020-10-19 08:52] LABS: ALKALINE PHOSPHATASE 59 U/L (45-117); BILIRUBIN,TOTAL 0.7 mg/dL (0.2-1.0); TOTAL PROTEIN 6.4 g/dL (6.4-8.2)
[2020-10-19 09:03] LABS: <PLATELET ESTIMATE> ADEQUATE; <PLT MORPHOLOGY> NORMAL PLT MORPH; <RBC MORPHOLOGY> NORMAL; EOS#(MANUAL) 0.12 x10^3/uL (0.0-0.4); EOS% (MANUAL) 1 % (1-7); LYMPH#(MANUAL) 1.29 x10^3/uL (1-3.4); LYMPHS% (MANUAL) 11 % (22-44); MONOS#(MANUAL) 1.29 x10^3/uL (0.3-2.7); MONOS% (MANUAL) 11 % (2-9); REACTIVE LYMPHS # (MANUAL) 0.47 x10^3/uL (0-0); REACTIVE LYMPHS % (MANUAL) 4 % (0-0); SEG#(MANUAL) 8.54 x10^3/uL (1.8-6.8); SEGS% (MANUAL) 73 % (42-75)
[2020-10-19] MEDS ORDERED: VANCOMYCIN PER PHARMACY MC PRN (09:30)
[2020-10-19] MEDS ORDERED: VANCOMYCIN 2,000 MG in SODIUM CHLORIDE 0.9% 500 ML IV ONE (10:00)
[2020-10-19] MEDS ORDERED: PHARMACOKINETIC CONSULTATION MC ONE (10:00)
[2020-10-19] MEDS ORDERED: PHARMACOKINETIC MONITORING MC PRN (10:00)
[2020-10-19] MEDS: SENNA/DOCUSATE TABLET PO SCH (10:00)
[2020-10-19] MEDS: DULOXETINE 20 MG CAPSULE.DR PO SCH ×3 (10:01→21:04)
[2020-10-19] MEDS: PREGABALIN 150 MG CAPSULE PO SCH ×3 (10:01→21:04)
[2020-10-19] MEDS: PIPERACILLIN/TAZO 3.375 GM in DEXTROSE 5% 50 ML IVPB SCH ×2 (10:53→21:04)
[2020-10-19 12:01] VITALS: BP 132/79
[2020-10-19 18:27] VITALS: BP 147/71
[2020-10-19] MEDS: TEMAZEPAM 15 MG CAPSULE PO PRN (21:13)
[2020-10-19] MEDS: VANCOMYCIN 1,700 MG in SODIUM CHLORIDE 0.9% 250 ML IV SCH (22:14)
[2020-10-20] VITALS (9 sets, daily range): BP systolic 76–115; BP diastolic 49–74
[2020-10-20] MEDS: ACETAMINOPHEN 325 MG TABLET PO PRN ×3 (01:10→23:54)
[2020-10-20] MEDS: HEPARIN 5,000 UNITS/ML, 1ML SQ SCH ×3 (02:00→15:56)
[2020-10-20] MEDS ORDERED: LACTATED RINGERS 1,000 ML IV ONE (03:30)
[2020-10-20] MEDS: KETOROLAC 30 MG/1 ML IVPush PRN ×3 (03:47→22:35)
[2020-10-20] MEDS: PIPERACILLIN/TAZO 3.375 GM in DEXTROSE 5% 50 ML IVPB SCH (05:06)
[2020-10-20 05:59] LABS: BASOPHILS % (AUTO) 1 % (0-1); EOSINOPHILS % (AUTO) 1 % (1-7); LYMPHOCYTES % (AUTO) 16 % (22-44); MEAN CORPUSCULAR HGB CONC 33.9 g/dL (33.2-36.2); MEAN PLATELET VOLUME 7.1 fL (7.4-10.4); MONOCYTES % (AUTO) 18 % (2-9); NEUTROPHILS % (AUTO) 65 % (42-75); PLATELET COUNT 303 x10^3/uL (130-400); RED BLOOD COUNT 3.92 x10^6/uL (4.38-5.82); RED CELL DISTRIBUTION WIDTH 13.6 % (9.4-14.8)
[2020-10-20 06:05] LABS: ANION GAP 7 mmol/L (5-15); CHLORIDE 100 mmol/L (98-107)
[2020-10-20 06:09] LABS: ALANINE AMINOTRANSFERASE 20 U/L (12-78); ALKALINE PHOSPHATASE 50 U/L (45-117); BILIRUBIN,TOTAL 0.7 mg/dL (0.2-1.0); CREATININE 0.79 mg/dL (0.7-1.3); TOTAL PROTEIN 6.1 g/dL (6.4-8.2)
[2020-10-20] MEDS: CARVEDILOL 6.25 MG TABLET PO SCH ×2 (06:24→17:27)
[2020-10-20] MEDS: TIZANIDINE 4MG TABLET PO SCH ×3 (06:25→22:34)
[2020-10-20] MEDS: SODIUM CHLORIDE 0.9% 1,000 ML IV SCH ×2 (08:09→15:50)
[2020-10-20] MEDS: DULOXETINE 20 MG CAPSULE.DR PO SCH ×3 (08:36→20:23)
[2020-10-20] MEDS: SENNA/DOCUSATE TABLET PO SCH (08:36)
[2020-10-20] MEDS: PREGABALIN 150 MG CAPSULE PO SCH ×3 (08:36→20:23)
[2020-10-20] MEDS ORDERED: CEFEPIME 2 GM in DEXTROSE 5% 100 ML IV SCH ×2 (09:30→10:47)
[2020-10-20] MEDS ORDERED: CEFEPIME 2 GM in DEXTROSE 5% 50 ML IV SCH (10:13)
[2020-10-20] MEDS: VANCOMYCIN 1,700 MG in SODIUM CHLORIDE 0.9% 250 ML IV SCH ×2 (10:42→22:35)
[2020-10-20] MEDS: CEFEPIME 2 GM in DEXTROSE 5% 50 ML IV SCH ×3 (11:44→20:23)
[2020-10-20] MEDS: TEMAZEPAM 15 MG CAPSULE PO PRN (20:33)
[2020-10-21] VITALS (9 sets, daily range): BP systolic 96–124; BP diastolic 61–75
[2020-10-21] MEDS: HEPARIN 5,000 UNITS/ML, 1ML SQ SCH ×4 (01:01→22:32)
[2020-10-21] MEDS: SODIUM CHLORIDE 0.9% 1,000 ML IV SCH ×2 (03:20→16:34)
[2020-10-21 03:33] LABS: BASOPHILS % (AUTO) 0 % (0-1); EOSINOPHILS % (AUTO) 6 % (1-7); HCT (SEDRATE) 31.1 % (39.2-51.8); LYMPHOCYTES % (AUTO) 9 % (22-44); MEAN CORPUSCULAR HEMOGLOBIN 30.5 pg (27.5-34.5); MEAN CORPUSCULAR HGB CONC 34.6 g/dL (33.2-36.2); MEAN PLATELET VOLUME 6.9 fL (7.4-10.4); MONOCYTES % (AUTO) 15 % (2-9); NEUTROPHILS % (AUTO) 69 % (42-75); PLATELET COUNT 293 x10^3/uL (130-400); RED BLOOD COUNT 3.57 x10^6/uL (4.38-5.82); RED CELL DISTRIBUTION WIDTH 13.7 % (9.4-14.8)
[2020-10-21] MEDS: CEFEPIME 2 GM in DEXTROSE 5% 50 ML IV SCH ×3 (04:25→19:58)
[2020-10-21] MEDS: CARVEDILOL 6.25 MG TABLET PO SCH ×2 (04:54→18:00)
[2020-10-21] MEDS: TIZANIDINE 4MG TABLET PO SCH (04:54)
[2020-10-21] MEDS: KETOROLAC 30 MG/1 ML IVPush PRN ×3 (09:39→19:58)
[2020-10-21] MEDS: ACETAMINOPHEN 325 MG TABLET PO PRN (09:40)
[2020-10-21] MEDS: SENNA/DOCUSATE TABLET PO SCH (09:40)
[2020-10-21] MEDS: VANCOMYCIN 1,700 MG in SODIUM CHLORIDE 0.9% 250 ML IV SCH (10:02)
[2020-10-21] MEDS: TEMAZEPAM 15 MG CAPSULE PO PRN (20:49)
[2020-10-21] MEDS: VANCOMYCIN 2,000 MG in SODIUM CHLORIDE 0.9% 500 ML IV SCH (22:39)
[2020-10-21] MEDS ORDERED: PREGABALIN 150 MG CAPSULE PO ONE (23:00)
[2020-10-22 00:17] VITALS: BP 126/83
[2020-10-22] MEDS: CEFEPIME 2 GM in DEXTROSE 5% 50 ML IV SCH (03:19)
[2020-10-22 04:47] LABS: BASOPHILS % (AUTO) 1 % (0-1); EOSINOPHILS % (AUTO) 8 % (1-7); LYMPHOCYTES % (AUTO) 12 % (22-44); MEAN CORPUSCULAR HEMOGLOBIN 30.5 pg (27.5-34.5); MEAN CORPUSCULAR HGB CONC 34.8 g/dL (33.2-36.2); MEAN PLATELET VOLUME 6.8 fL (7.4-10.4); MONOCYTES % (AUTO) 14 % (2-9); NEUTROPHILS % (AUTO) 65 % (42-75); PLATELET COUNT 325 x10^3/uL (130-400); RED BLOOD COUNT 3.61 x10^6/uL (4.38-5.82); RED CELL DISTRIBUTION WIDTH 14.2 % (9.4-14.8)
[2020-10-22 04:56] LABS: CALCIUM 8.3 mg/dL (8.5-10.1); CHLORIDE 107 mmol/L (98-107)
[2020-10-22 05:02] LABS: ALANINE AMINOTRANSFERASE 25 U/L (12-78); ALBUMIN 1.7 g/dL (3.4-5.0); ALKALINE PHOSPHATASE 51 U/L (45-117); ANION GAP 5 mmol/L (5-15); BILIRUBIN,TOTAL 0.3 mg/dL (0.2-1.0); CREATININE 0.65 mg/dL (0.7-1.3); TOTAL PROTEIN 5.8 g/dL (6.4-8.2)
[2020-10-22] MEDS: CARVEDILOL 6.25 MG TABLET PO SCH ×2 (06:20→16:51)
[2020-10-22 07:45] VITALS: BP 117/72
[2020-10-22] MEDS: KETOROLAC 30 MG/1 ML IVPush PRN ×2 (09:09→20:41)
[2020-10-22] MEDS: SENNA/DOCUSATE TABLET PO SCH (09:09)
[2020-10-22] MEDS: ACETAMINOPHEN 325 MG TABLET PO PRN (09:09)
[2020-10-22] MEDS: HEPARIN 5,000 UNITS/ML, 1ML SQ SCH (09:10)
[2020-10-22] MEDS: VANCOMYCIN 2,000 MG in SODIUM CHLORIDE 0.9% 500 ML IV SCH (10:00)
[2020-10-22] MEDS ORDERED: LORazepam 2 MG/ML, 1ML IVPush PRN (11:30)
[2020-10-22] MEDS: PREGABALIN 150 MG CAPSULE PO SCH ×3 (11:31→20:41)
[2020-10-22] MEDS ORDERED: OMNIPAQUE 350 MG/ML, 75ML BOTTLE ONE (12:49)
[2020-10-22 12:59] VITALS: BP 113/72
[2020-10-22] MEDS: DOXYCYCLINE 100 MG in DEXTROSE 5% 250 ML IV SCH (13:14)
[2020-10-22] MEDS: CEFTRIAXONE 2 GM in DEXTROSE 5% 50 ML IVPB SCH (13:15)
[2020-10-22] MEDS ORDERED: HEPARIN 25,000 UNITS/250ML PMX 250 ML IV PRN (14:00)
[2020-10-22] MEDS ORDERED: HEPARIN 5,000 UNITS/ML, 1ML IV ONE (14:00)
[2020-10-22] MEDS: SODIUM CHLORIDE 0.9% 1,000 ML IV SCH (16:51)
[2020-10-22 19:40] VITALS: BP 148/97
[2020-10-22] MEDS: TEMAZEPAM 15 MG CAPSULE PO PRN (20:41)
[2020-10-22] MEDS: HEPARIN 5,000 UNITS/ML, 1ML IV PRN (23:59)
[2020-10-23] MEDS: ACETAMINOPHEN 325 MG TABLET PO PRN ×2 (00:02→09:19)
[2020-10-23 00:40] VITALS: BP 96/58
[2020-10-23] MEDS: DOXYCYCLINE 100 MG in DEXTROSE 5% 250 ML IV SCH ×2 (01:17→13:14)
[2020-10-23] MEDS: SODIUM CHLORIDE 0.9% 1,000 ML IV SCH ×2 (03:19→19:10)
[2020-10-23] MEDS: CARVEDILOL 6.25 MG TABLET PO SCH ×2 (05:10→20:38)
[2020-10-23] MEDS: HEPARIN 5,000 UNITS/ML, 1ML IV PRN (06:22)
[2020-10-23 07:13] VITALS: BP 108/68
[2020-10-23] MEDS: SENNA/DOCUSATE TABLET PO SCH (09:19)
[2020-10-23] MEDS: PREGABALIN 150 MG CAPSULE PO SCH ×3 (09:19→20:38)
[2020-10-23] MEDS: KETOROLAC 30 MG/1 ML IVPush PRN ×2 (09:38→10:44)
[2020-10-23] MEDS: RIVAROXABAN 15 MG TABLET PO SCH ×2 (11:29→20:38)
[2020-10-23] MEDS: CEFTRIAXONE 2 GM in DEXTROSE 5% 50 ML IVPB SCH (11:29)
[2020-10-23] MEDS: TIZANIDINE 4MG TABLET PO SCH ×2 (11:29→20:38)
[2020-10-23 13:00] VITALS: BP 94/59
[2020-10-23 18:45] VITALS: BP 149/76
[2020-10-23] MEDS: TEMAZEPAM 15 MG CAPSULE PO PRN (20:38)
[2020-10-24 00:45] VITALS: BP 118/70
[2020-10-24] MEDS: ACETAMINOPHEN 325 MG TABLET PO PRN (01:03)
[2020-10-24] MEDS: DOXYCYCLINE 100 MG in DEXTROSE 5% 250 ML IV SCH ×2 (01:03→13:21)
[2020-10-24] MEDS: TIZANIDINE 4MG TABLET PO SCH ×3 (04:54→20:36)
[2020-10-24] MEDS: PREGABALIN 150 MG CAPSULE PO SCH ×4 (05:05→20:36)
[2020-10-24] MEDS: CARVEDILOL 6.25 MG TABLET PO SCH ×2 (05:05→18:13)
[2020-10-24] MEDS: SODIUM CHLORIDE 0.9% 1,000 ML IV SCH ×2 (05:06→16:50)
[2020-10-24 08:28] VITALS: BP 119/71
[2020-10-24] MEDS: RIVAROXABAN 15 MG TABLET PO SCH ×2 (09:21→16:50)
[2020-10-24] MEDS: SENNA/DOCUSATE TABLET PO SCH (09:22)
[2020-10-24] MEDS: KETOROLAC 30 MG/1 ML IVPush PRN (09:32)
[2020-10-24] MEDS: CEFTRIAXONE 2 GM in DEXTROSE 5% 50 ML IVPB SCH (11:10)
[2020-10-24 14:27] VITALS: BP 124/74
[2020-10-24 20:19] VITALS: BP 129/79
[2020-10-24] MEDS: TEMAZEPAM 15 MG CAPSULE PO PRN (20:36)
[2020-10-25] MEDS: DOXYCYCLINE 100 MG in DEXTROSE 5% 250 ML IV SCH ×2 (01:15→13:09)
[2020-10-25 02:01] VITALS: BP 127/75
[2020-10-25] MEDS: TIZANIDINE 4MG TABLET PO SCH ×3 (03:31→20:24)
[2020-10-25] MEDS: SODIUM CHLORIDE 0.9% 1,000 ML IV SCH ×3 (03:31→23:15)
[2020-10-25] MEDS: PREGABALIN 150 MG CAPSULE PO SCH ×4 (05:08→20:24)
[2020-10-25] MEDS: CARVEDILOL 6.25 MG TABLET PO SCH ×2 (05:08→18:53)
[2020-10-25 06:18] LABS: MEAN CORPUSCULAR HEMOGLOBIN 30.4 pg (27.5-34.5); MEAN CORPUSCULAR HGB CONC 34.3 g/dL (33.2-36.2); MEAN PLATELET VOLUME 6.4 fL (7.4-10.4); PLATELET COUNT 412 x10^3/uL (130-400); RED BLOOD COUNT 3.67 x10^6/uL (4.38-5.82); RED CELL DISTRIBUTION WIDTH 14.2 % (9.4-14.8)
[2020-10-25 06:30] LABS: CHLORIDE 111 mmol/L (98-107)
[2020-10-25 06:39] LABS: BAND#(MANUAL) 0.18 x10^3/uL; BANDS%(MANUAL) 2 % (0-7); EOS#(MANUAL) 0.35 x10^3/uL (0.0-0.4); EOS% (MANUAL) 4 % (1-7); LYMPH#(MANUAL) 1.23 x10^3/uL (1-3.4); LYMPHS% (MANUAL) 14 % (22-44); METAMYELOCYTES# (MANUAL) 0.18 x10^3/uL (0-0); METAMYELOCYTES% (MANUAL) 2 % (0-1); MONOS#(MANUAL) 1.06 x10^3/uL (0.3-2.7); MONOS% (MANUAL) 12 % (2-9); REACTIVE LYMPHS # (MANUAL) 0.09 x10^3/uL (0-0); REACTIVE LYMPHS % (MANUAL) 1 % (0-0); SEG#(MANUAL) 5.72 x10^3/uL (1.8-6.8); SEGS% (MANUAL) 65 % (42-75)
[2020-10-25 06:40] LABS: <PLATELET ESTIMATE> INCREASED; ALANINE AMINOTRANSFERASE 29 U/L (12-78); ALBUMIN 1.5 g/dL (3.4-5.0); ALKALINE PHOSPHATASE 48 U/L (45-117); ANION GAP 5 mmol/L (5-15); BILIRUBIN,TOTAL 0.2 mg/dL (0.2-1.0); CALCIUM 8.5 mg/dL (8.5-10.1); CREATININE 0.57 mg/dL (0.7-1.3); POLYCHROMASIA 1+; SMALL PLATELETS 1+; TOTAL PROTEIN 5.3 g/dL (6.4-8.2)
[2020-10-25 08:23] VITALS: BP 132/84
[2020-10-25] MEDS: RIVAROXABAN 15 MG TABLET PO SCH ×2 (08:37→17:22)
[2020-10-25] MEDS: OXYcodone IR 5MG TABLET PO PRN ×3 (08:47→18:59)
[2020-10-25 08:49] VITALS: BP 116/72
[2020-10-25] MEDS: SENNA/DOCUSATE TABLET PO SCH ×2 (09:00→18:59)
[2020-10-25] MEDS: CEFTRIAXONE 2 GM in DEXTROSE 5% 50 ML IVPB SCH (12:11)
[2020-10-25 14:23] VITALS: BP 122/76
[2020-10-25 18:52] VITALS: BP 117/68
[2020-10-25] MEDS: TEMAZEPAM 15 MG CAPSULE PO PRN (20:23)
[2020-10-25] MEDS: AMITRIPTYLINE 10 MG TABLET PO SCH (20:24)
[2020-10-25 23:56] VITALS: BP 129/75
[2020-10-26] MEDS: DOXYCYCLINE 100 MG in DEXTROSE 5% 250 ML IV SCH ×2 (01:38→12:36)
[2020-10-26] MEDS: TIZANIDINE 4MG TABLET PO SCH ×3 (03:37→20:41)
[2020-10-26 03:40] VITALS: BP 132/82
[2020-10-26] MEDS: OXYcodone IR 5MG TABLET PO PRN ×5 (04:18→21:19)
[2020-10-26 05:38] VITALS: BP 133/81
[2020-10-26] MEDS: CARVEDILOL 6.25 MG TABLET PO SCH ×2 (05:38→17:12)
[2020-10-26] MEDS: PREGABALIN 150 MG CAPSULE PO SCH ×4 (05:38→20:41)
[2020-10-26 08:38] VITALS: BP 112/67
[2020-10-26] MEDS: SENNA/DOCUSATE TABLET PO SCH (08:41)
[2020-10-26] MEDS: RIVAROXABAN 15 MG TABLET PO SCH ×2 (08:42→17:12)
[2020-10-26] MEDS: SODIUM CHLORIDE 0.9% 1,000 ML IV SCH (08:42)
[2020-10-26] MEDS: CEFTRIAXONE 2 GM in DEXTROSE 5% 50 ML IVPB SCH (11:21)
[2020-10-26 13:14] VITALS: BP 126/77
[2020-10-26 18:58] VITALS: BP 121/76
[2020-10-26] MEDS: TEMAZEPAM 15 MG CAPSULE PO PRN (20:41)
[2020-10-26] MEDS: AMITRIPTYLINE 10 MG TABLET PO SCH (20:42)
[2020-10-27 00:53] VITALS: BP 118/73
[2020-10-27] MEDS: DOXYCYCLINE 100 MG in DEXTROSE 5% 250 ML IV SCH ×2 (01:29→13:22)
[2020-10-27] MEDS: OXYcodone IR 5MG TABLET PO PRN ×5 (01:29→22:58)
[2020-10-27 05:06] VITALS: BP 133/81
[2020-10-27] MEDS: PREGABALIN 150 MG CAPSULE PO SCH ×4 (05:09→20:32)
[2020-10-27] MEDS: CARVEDILOL 6.25 MG TABLET PO SCH ×2 (05:09→17:06)
[2020-10-27] MEDS: TIZANIDINE 4MG TABLET PO SCH ×3 (05:09→20:32)
[2020-10-27 06:52] VITALS: BP 110/69
[2020-10-27] MEDS: SENNA/DOCUSATE TABLET PO SCH (09:14)
[2020-10-27] MEDS: RIVAROXABAN 15 MG TABLET PO SCH ×2 (09:15→17:06)
[2020-10-27] MEDS: CEFTRIAXONE 2 GM in DEXTROSE 5% 50 ML IVPB SCH (11:25)
[2020-10-27 12:37] VITALS: BP 121/77
[2020-10-27 20:29] VITALS: BP 129/72
[2020-10-27] MEDS: TEMAZEPAM 15 MG CAPSULE PO PRN (20:32)
[2020-10-27] MEDS: AMITRIPTYLINE 10 MG TABLET PO SCH (20:32)
[2020-10-28] MEDS: DOXYCYCLINE 100 MG in DEXTROSE 5% 250 ML IV SCH ×2 (00:59→13:00)
[2020-10-28 01:06] VITALS: BP 108/70
[2020-10-28] MEDS: TIZANIDINE 4MG TABLET PO SCH ×3 (04:51→20:21)
[2020-10-28 06:11] VITALS: BP 116/72
[2020-10-28] MEDS: OXYcodone IR 5MG TABLET PO PRN ×4 (06:12→20:21)
[2020-10-28] MEDS: CARVEDILOL 6.25 MG TABLET PO SCH ×2 (06:13→17:42)
[2020-10-28] MEDS: PREGABALIN 150 MG CAPSULE PO SCH ×4 (06:13→20:20)
[2020-10-28] MEDS: SENNA/DOCUSATE TABLET PO SCH (08:20)
[2020-10-28] MEDS: RIVAROXABAN 15 MG TABLET PO SCH ×2 (08:20→17:42)
[2020-10-28] MEDS: CEFTRIAXONE 2 GM in DEXTROSE 5% 50 ML IVPB SCH (11:29)
[2020-10-28 15:57] VITALS: BP 119/76
[2020-10-28 18:28] VITALS: BP 123/78
[2020-10-28] MEDS: TEMAZEPAM 15 MG CAPSULE PO PRN (20:20)
[2020-10-28] MEDS: AMITRIPTYLINE 10 MG TABLET PO SCH (20:20)
[2020-10-29 00:35] VITALS: BP 105/94
[2020-10-29] MEDS: OXYcodone IR 5MG TABLET PO PRN ×5 (01:03→21:16)
[2020-10-29] MEDS: TIZANIDINE 4MG TABLET PO SCH ×3 (05:01→21:16)
[2020-10-29 05:59] VITALS: BP 103/67
[2020-10-29] MEDS: CARVEDILOL 6.25 MG TABLET PO SCH ×2 (06:02→17:45)
[2020-10-29] MEDS: PREGABALIN 150 MG CAPSULE PO SCH ×4 (06:03→21:17)
[2020-10-29 06:50] VITALS: BP 109/71
[2020-10-29] MEDS: RIVAROXABAN 15 MG TABLET PO SCH ×2 (09:17→16:33)
[2020-10-29] MEDS: SENNA/DOCUSATE TABLET PO SCH (09:17)
[2020-10-29 14:01] VITALS: BP 114/67
[2020-10-29 19:53] VITALS: BP 108/73
[2020-10-29] MEDS: TEMAZEPAM 15 MG CAPSULE PO PRN (21:16)
[2020-10-29] MEDS: CARBAMAZEPINE 200 MG TABLET PO SCH (21:17)
[2020-10-30 01:37] VITALS: BP 116/71
[2020-10-30] MEDS: CARVEDILOL 6.25 MG TABLET PO SCH ×2 (05:46→18:18)
[2020-10-30] MEDS: PREGABALIN 150 MG CAPSULE PO SCH ×4 (05:46→21:48)
[2020-10-30] MEDS: TIZANIDINE 4MG TABLET PO SCH ×3 (05:46→21:48)
[2020-10-30] MEDS: OXYcodone IR 5MG TABLET PO PRN ×5 (05:47→22:49)
[2020-10-30 08:35] VITALS: BP 116/76
[2020-10-30] MEDS: SENNA/DOCUSATE TABLET PO SCH (08:37)
[2020-10-30] MEDS: CARBAMAZEPINE 200 MG TABLET PO SCH ×3 (08:37→21:48)
[2020-10-30] MEDS: RIVAROXABAN 15 MG TABLET PO SCH ×2 (08:37→18:18)
[2020-10-30 13:01] VITALS: BP 129/77
[2020-10-30 19:52] VITALS: BP_SYST 105; BP_SYST 139; BP_DIAS 71; BP_DIAS 76
[2020-10-30] MEDS: TEMAZEPAM 15 MG CAPSULE PO PRN (21:49)
[2020-10-31 03:14] VITALS: BP 109/67
[2020-10-31] MEDS: OXYcodone IR 5MG TABLET PO PRN ×4 (03:24→21:09)
[2020-10-31] MEDS: PREGABALIN 150 MG CAPSULE PO SCH ×4 (06:34→21:08)
[2020-10-31] MEDS: TIZANIDINE 4MG TABLET PO SCH ×3 (06:34→21:08)
[2020-10-31] MEDS: CARVEDILOL 6.25 MG TABLET PO SCH ×2 (06:34→17:44)
[2020-10-31 07:50] VITALS: BP 102/64
[2020-10-31] MEDS: RIVAROXABAN 15 MG TABLET PO SCH ×2 (09:33→17:44)
[2020-10-31] MEDS: SENNA/DOCUSATE TABLET PO SCH (09:34)
[2020-10-31] MEDS: CARBAMAZEPINE 200 MG TABLET PO SCH ×3 (09:34→21:08)
[2020-10-31 13:45] VITALS: BP 108/65
[2020-10-31 19:44] VITALS: BP 113/67
[2020-11-01] MEDS: OXYcodone IR 5MG TABLET PO PRN ×5 (01:01→20:32)
[2020-11-01 01:20] VITALS: BP 116/76
[2020-11-01] MEDS: TIZANIDINE 4MG TABLET PO SCH ×3 (04:58→20:32)
[2020-11-01] MEDS: PREGABALIN 150 MG CAPSULE PO SCH ×4 (04:58→20:32)
[2020-11-01] MEDS: CARVEDILOL 6.25 MG TABLET PO SCH ×2 (04:59→18:35)
[2020-11-01] MEDS: CARBAMAZEPINE 200 MG TABLET PO SCH ×3 (08:14→20:32)
[2020-11-01] MEDS: RIVAROXABAN 15 MG TABLET PO SCH ×2 (08:14→15:34)
[2020-11-01] MEDS: SENNA/DOCUSATE TABLET PO SCH (08:15)
[2020-11-01 10:58] VITALS: BP 113/67
[2020-11-01 15:20] VITALS: BP 113/75
[2020-11-01] MEDS: DULOXETINE 30 MG CAPSULE.DR PO SCH (20:32)
[2020-11-01 20:56] VITALS: BP 104/61
[2020-11-02] MEDS: OXYcodone IR 5MG TABLET PO PRN ×5 (01:07→20:48)
[2020-11-02 02:00] VITALS: BP 114/65
[2020-11-02] MEDS: PREGABALIN 150 MG CAPSULE PO SCH ×4 (05:04→20:45)
[2020-11-02] MEDS: CARVEDILOL 6.25 MG TABLET PO SCH ×2 (05:05→18:34)
[2020-11-02] MEDS: TIZANIDINE 4MG TABLET PO SCH ×3 (05:05→20:45)
[2020-11-02 07:02] VITALS: BP 109/68
[2020-11-02] MEDS: DULOXETINE 30 MG CAPSULE.DR PO SCH ×2 (10:25→20:45)
[2020-11-02] MEDS: CARBAMAZEPINE 200 MG TABLET PO SCH ×3 (10:25→20:45)
[2020-11-02] MEDS: SENNA/DOCUSATE TABLET PO SCH (10:26)
[2020-11-02] MEDS: RIVAROXABAN 15 MG TABLET PO SCH ×2 (10:26→16:39)
[2020-11-02 12:20] VITALS: BP 112/69
[2020-11-02] MEDS: METHADONE 5 MG TABLET PO SCH (16:39)
[2020-11-02 19:04] VITALS: BP 147/68
[2020-11-02 19:06] VITALS: BP 125/75
[2020-11-02] MEDS: TEMAZEPAM 15 MG CAPSULE PO PRN (21:37)
[2020-11-03 01:15] VITALS: BP 109/71
[2020-11-03] MEDS: CARVEDILOL 6.25 MG TABLET PO SCH ×2 (05:19→17:17)
[2020-11-03] MEDS: PREGABALIN 150 MG CAPSULE PO SCH ×4 (05:19→20:51)
[2020-11-03] MEDS: METHADONE 5 MG TABLET PO SCH ×2 (05:19→16:06)
[2020-11-03] MEDS: TIZANIDINE 4MG TABLET PO SCH ×3 (05:19→20:51)
[2020-11-03 07:12] VITALS: BP 111/68
[2020-11-03] MEDS: DULOXETINE 30 MG CAPSULE.DR PO SCH ×2 (07:48→20:51)
[2020-11-03] MEDS: RIVAROXABAN 15 MG TABLET PO SCH ×2 (07:48→16:07)
[2020-11-03] MEDS: CARBAMAZEPINE 200 MG TABLET PO SCH ×3 (07:48→20:51)
[2020-11-03] MEDS: OXYcodone IR 5MG TABLET PO PRN ×3 (07:49→17:18)
[2020-11-03] MEDS: SENNA/DOCUSATE TABLET PO SCH (07:50)
[2020-11-03 12:32] VITALS: BP 107/71
[2020-11-03 19:06] VITALS: BP 107/60
[2020-11-03] MEDS: TEMAZEPAM 15 MG CAPSULE PO PRN (20:51)
[2020-11-04 00:28] VITALS: BP 135/66
[2020-11-04] MEDS: OXYcodone IR 5MG TABLET PO PRN ×5 (01:43→22:08)
[2020-11-04] MEDS: METHADONE 5 MG TABLET PO SCH ×2 (05:47→16:45)
[2020-11-04] MEDS: CARVEDILOL 6.25 MG TABLET PO SCH ×2 (05:47→18:05)
[2020-11-04] MEDS: TIZANIDINE 4MG TABLET PO SCH ×3 (05:47→20:51)
[2020-11-04] MEDS: PREGABALIN 150 MG CAPSULE PO SCH ×4 (05:47→20:51)
[2020-11-04 07:38] VITALS: BP 106/67
[2020-11-04] MEDS: RIVAROXABAN 15 MG TABLET PO SCH ×2 (08:30→16:45)
[2020-11-04] MEDS: CARBAMAZEPINE 200 MG TABLET PO SCH ×3 (08:30→20:51)
[2020-11-04] MEDS: DULOXETINE 30 MG CAPSULE.DR PO SCH ×2 (08:30→20:51)
[2020-11-04] MEDS: SENNA/DOCUSATE TABLET PO SCH (08:30)
[2020-11-04 13:59] VITALS: BP 103/60
[2020-11-04 19:27] VITALS: BP 114/57
[2020-11-04] MEDS: TEMAZEPAM 15 MG CAPSULE PO PRN (23:15)
[2020-11-05 00:05] VITALS: BP 110/60
[2020-11-05] MEDS: OXYcodone IR 5MG TABLET PO PRN ×4 (02:13→20:16)
[2020-11-05] MEDS: METHADONE 5 MG TABLET PO SCH ×2 (05:05→17:48)
[2020-11-05] MEDS: PREGABALIN 150 MG CAPSULE PO SCH ×4 (05:05→21:18)
[2020-11-05] MEDS: TIZANIDINE 4MG TABLET PO SCH ×3 (06:01→21:18)
[2020-11-05 06:03] VITALS: BP 106/57
[2020-11-05] MEDS: CARVEDILOL 6.25 MG TABLET PO SCH ×2 (06:04→17:49)
[2020-11-05 06:28] LABS: BASOPHILS % (AUTO) 1 % (0-1); EOSINOPHILS % (AUTO) 4 % (1-7); LYMPHOCYTES % (AUTO) 21 % (22-44); MEAN CORPUSCULAR HEMOGLOBIN 29.8 pg (27.5-34.5); MEAN CORPUSCULAR HGB CONC 33.4 g/dL (33.2-36.2); MEAN PLATELET VOLUME 6.7 fL (7.4-10.4); MONOCYTES % (AUTO) 8 % (2-9); NEUTROPHILS % (AUTO) 66 % (42-75); PLATELET COUNT 325 x10^3/uL (130-400); RED BLOOD COUNT 4.15 x10^6/uL (4.38-5.82); RED CELL DISTRIBUTION WIDTH 14.7 % (9.4-14.8)
[2020-11-05 06:35] LABS: ALBUMIN 2.2 g/dL (3.4-5.0); ANION GAP 4 mmol/L (5-15); CHLORIDE 102 mmol/L (98-107)
[2020-11-05 06:39] LABS: ALANINE AMINOTRANSFERASE 36 U/L (12-78); ALKALINE PHOSPHATASE 72 U/L (45-117); BILIRUBIN,TOTAL 0.2 mg/dL (0.2-1.0); TOTAL PROTEIN 6.5 g/dL (6.4-8.2)
[2020-11-05 07:55] VITALS: BP 104/67
[2020-11-05] MEDS: RIVAROXABAN 15 MG TABLET PO SCH ×2 (08:21→17:48)
[2020-11-05] MEDS: SENNA/DOCUSATE TABLET PO SCH (08:37)
[2020-11-05] MEDS: DULOXETINE 30 MG CAPSULE.DR PO SCH ×2 (08:37→21:18)
[2020-11-05] MEDS: CARBAMAZEPINE 200 MG TABLET PO SCH ×3 (08:38→21:18)
[2020-11-05 14:52] VITALS: BP 114/71
[2020-11-05 18:35] VITALS: BP 103/62
[2020-11-05] MEDS: TEMAZEPAM 15 MG CAPSULE PO PRN (22:37)
[2020-11-06 00:22] VITALS: BP 107/68
[2020-11-06] MEDS: OXYcodone IR 5MG TABLET PO PRN ×5 (01:44→21:19)
[2020-11-06 05:13] VITALS: BP 108/61
[2020-11-06] MEDS: CARVEDILOL 6.25 MG TABLET PO SCH ×2 (05:20→18:22)
[2020-11-06] MEDS: TIZANIDINE 4MG TABLET PO SCH ×3 (05:20→21:18)
[2020-11-06] MEDS: PREGABALIN 150 MG CAPSULE PO SCH ×4 (05:20→21:19)
[2020-11-06] MEDS: METHADONE 5 MG TABLET PO SCH ×2 (06:00→18:21)
[2020-11-06 06:47] VITALS: BP 97/62
[2020-11-06] MEDS: SENNA/DOCUSATE TABLET PO SCH (08:44)
[2020-11-06] MEDS: CARBAMAZEPINE 200 MG TABLET PO SCH ×3 (08:44→21:19)
[2020-11-06] MEDS: DULOXETINE 30 MG CAPSULE.DR PO SCH ×2 (08:44→21:19)
[2020-11-06] MEDS: RIVAROXABAN 15 MG TABLET PO SCH ×2 (08:44→17:01)
[2020-11-06 12:48] VITALS: BP 113/67
[2020-11-06 18:51] VITALS: BP 115/70
[2020-11-06] MEDS: TEMAZEPAM 15 MG CAPSULE PO PRN (21:18)
[2020-11-07 00:55] VITALS: BP 106/68
[2020-11-07] MEDS: OXYcodone IR 5MG TABLET PO PRN ×4 (01:23→21:01)
[2020-11-07] MEDS: CARVEDILOL 6.25 MG TABLET PO SCH ×2 (05:32→18:00)
[2020-11-07] MEDS: METHADONE 5 MG TABLET PO SCH ×2 (05:33→17:58)
[2020-11-07] MEDS: PREGABALIN 150 MG CAPSULE PO SCH ×4 (05:33→21:00)
[2020-11-07] MEDS: TIZANIDINE 4MG TABLET PO SCH ×3 (05:33→21:00)
[2020-11-07 06:43] VITALS: BP 100/61
[2020-11-07] MEDS: RIVAROXABAN 15 MG TABLET PO SCH ×2 (08:38→17:58)
[2020-11-07] MEDS: DULOXETINE 30 MG CAPSULE.DR PO SCH ×2 (08:38→21:00)
[2020-11-07] MEDS: SENNA/DOCUSATE TABLET PO SCH (08:39)
[2020-11-07] MEDS: CARBAMAZEPINE 200 MG TABLET PO SCH ×3 (08:39→21:00)
[2020-11-07 14:09] VITALS: BP 102/63
[2020-11-07 18:33] VITALS: BP 115/71
[2020-11-07] MEDS: TEMAZEPAM 15 MG CAPSULE PO PRN (21:58)
[2020-11-08 03:22] VITALS: BP 109/66
[2020-11-08] MEDS: OXYcodone IR 5MG TABLET PO PRN ×4 (04:24→20:30)
[2020-11-08] MEDS: CARVEDILOL 6.25 MG TABLET PO SCH ×2 (06:02→18:11)
[2020-11-08] MEDS: METHADONE 5 MG TABLET PO SCH ×2 (06:02→18:11)
[2020-11-08] MEDS: PREGABALIN 150 MG CAPSULE PO SCH ×4 (06:03→20:30)
[2020-11-08] MEDS: TIZANIDINE 4MG TABLET PO SCH ×3 (06:03→20:30)
[2020-11-08 07:04] VITALS: BP 109/69
[2020-11-08] MEDS: RIVAROXABAN 15 MG TABLET PO SCH ×2 (08:13→17:12)
[2020-11-08] MEDS: SENNA/DOCUSATE TABLET PO SCH (08:14)
[2020-11-08] MEDS: CARBAMAZEPINE 200 MG TABLET PO SCH ×3 (08:14→20:30)
[2020-11-08] MEDS: DULOXETINE 30 MG CAPSULE.DR PO SCH ×2 (08:14→20:30)
[2020-11-08 13:52] VITALS: BP 122/75
[2020-11-08 18:54] VITALS: BP 118/68
[2020-11-08] MEDS: TEMAZEPAM 15 MG CAPSULE PO PRN (21:47)
[2020-11-09 01:28] VITALS: BP 103/61
[2020-11-09] MEDS: OXYcodone IR 5MG TABLET PO PRN ×3 (04:12→20:05)
[2020-11-09] MEDS: CARVEDILOL 6.25 MG TABLET PO SCH ×2 (05:19→17:39)
[2020-11-09] MEDS: TIZANIDINE 4MG TABLET PO SCH ×3 (05:19→20:04)
[2020-11-09] MEDS: PREGABALIN 150 MG CAPSULE PO SCH ×4 (05:19→20:04)
[2020-11-09] MEDS: METHADONE 5 MG TABLET PO SCH ×2 (05:19→17:39)
[2020-11-09 08:14] VITALS: BP 107/69
[2020-11-09] MEDS: DULOXETINE 30 MG CAPSULE.DR PO SCH ×2 (08:31→20:05)
[2020-11-09] MEDS: CARBAMAZEPINE 200 MG TABLET PO SCH ×3 (08:31→20:04)
[2020-11-09] MEDS: SENNA/DOCUSATE TABLET PO SCH (08:31)
[2020-11-09] MEDS: RIVAROXABAN 15 MG TABLET PO SCH ×2 (08:31→17:39)
[2020-11-09 12:34] VITALS: BP 100/48
[2020-11-09 19:56] VITALS: BP 108/59
[2020-11-09] MEDS: TEMAZEPAM 15 MG CAPSULE PO PRN (21:50)
[2020-11-10 01:29] VITALS: BP 108/68
[2020-11-10] MEDS: OXYcodone IR 5MG TABLET PO PRN ×4 (02:44→20:33)
[2020-11-10] MEDS: CARVEDILOL 6.25 MG TABLET PO SCH ×2 (05:36→18:37)
[2020-11-10] MEDS: PREGABALIN 150 MG CAPSULE PO SCH ×4 (05:36→20:33)
[2020-11-10] MEDS: TIZANIDINE 4MG TABLET PO SCH ×3 (05:36→20:33)
[2020-11-10] MEDS: METHADONE 5 MG TABLET PO SCH ×2 (05:36→18:37)
[2020-11-10 07:37] VITALS: BP 109/68
[2020-11-10] MEDS: RIVAROXABAN 15 MG TABLET PO SCH ×2 (08:09→17:26)
[2020-11-10] MEDS: SENNA/DOCUSATE TABLET PO SCH (08:09)
[2020-11-10] MEDS: CARBAMAZEPINE 200 MG TABLET PO SCH ×3 (08:09→20:33)
[2020-11-10] MEDS: DULOXETINE 30 MG CAPSULE.DR PO SCH ×2 (08:09→20:33)
[2020-11-10 12:59] VITALS: BP 115/70
[2020-11-10 19:46] VITALS: BP 116/71
[2020-11-10] MEDS: TEMAZEPAM 15 MG CAPSULE PO PRN (22:35)
[2020-11-11] MEDS: OXYcodone IR 5MG TABLET PO PRN ×4 (00:50→21:11)
[2020-11-11 00:51] VITALS: BP 117/72
[2020-11-11] MEDS: PREGABALIN 150 MG CAPSULE PO SCH ×4 (05:02→21:11)
[2020-11-11] MEDS: CARVEDILOL 6.25 MG TABLET PO SCH ×2 (05:03→17:48)
[2020-11-11] MEDS: METHADONE 5 MG TABLET PO SCH ×2 (05:03→17:48)
[2020-11-11] MEDS: TIZANIDINE 4MG TABLET PO SCH ×3 (05:03→21:11)
[2020-11-11 08:19] VITALS: BP 116/73
[2020-11-11] MEDS: CARBAMAZEPINE 200 MG TABLET PO SCH ×3 (08:21→21:11)
[2020-11-11] MEDS: SENNA/DOCUSATE TABLET PO SCH (08:21)
[2020-11-11] MEDS: DULOXETINE 30 MG CAPSULE.DR PO SCH ×2 (08:22→21:11)
[2020-11-11] MEDS: RIVAROXABAN 15 MG TABLET PO SCH ×2 (08:22→17:48)
[2020-11-11 14:32] VITALS: BP 116/68
[2020-11-11 17:50] VITALS: BP 126/84
[2020-11-11 19:42] VITALS: BP 115/71
[2020-11-11] MEDS: TEMAZEPAM 15 MG CAPSULE PO PRN (22:48)
[2020-11-12 00:35] VITALS: BP 107/67
[2020-11-12] MEDS: OXYcodone IR 5MG TABLET PO PRN ×4 (03:45→21:17)
[2020-11-12 05:08] VITALS: BP 115/67
[2020-11-12] MEDS: CARVEDILOL 6.25 MG TABLET PO SCH ×2 (05:10→17:10)
[2020-11-12] MEDS: METHADONE 5 MG TABLET PO SCH ×2 (05:10→17:11)
[2020-11-12] MEDS: TIZANIDINE 4MG TABLET PO SCH ×3 (05:10→21:16)
[2020-11-12] MEDS: PREGABALIN 150 MG CAPSULE PO SCH ×4 (05:10→21:16)
[2020-11-12 07:47] VITALS: BP 121/70
[2020-11-12] MEDS: RIVAROXABAN 15 MG TABLET PO SCH ×2 (09:01→17:10)
[2020-11-12] MEDS: DULOXETINE 30 MG CAPSULE.DR PO SCH ×2 (09:02→21:16)
[2020-11-12] MEDS: SENNA/DOCUSATE TABLET PO SCH (09:02)
[2020-11-12] MEDS: CARBAMAZEPINE 200 MG TABLET PO SCH ×3 (09:02→21:16)
[2020-11-12 14:14] VITALS: BP 103/60
[2020-11-12 18:35] VITALS: BP 117/68
[2020-11-12] MEDS: TEMAZEPAM 15 MG CAPSULE PO PRN (22:11)
[2020-11-13 00:20] VITALS: BP 117/67
[2020-11-13] MEDS: OXYcodone IR 5MG TABLET PO PRN ×5 (03:18→21:23)
[2020-11-13] MEDS: METHADONE 5 MG TABLET PO SCH ×2 (05:55→17:19)
[2020-11-13] MEDS: PREGABALIN 150 MG CAPSULE PO SCH ×4 (05:55→21:23)
[2020-11-13] MEDS: CARVEDILOL 6.25 MG TABLET PO SCH ×2 (05:56→17:19)
[2020-11-13] MEDS: TIZANIDINE 4MG TABLET PO SCH ×3 (05:57→21:23)
[2020-11-13 06:45] VITALS: BP 116/68
[2020-11-13] MEDS: RIVAROXABAN 20 MG TABLET PO SCH (08:57)
[2020-11-13] MEDS: SENNA/DOCUSATE TABLET PO SCH (08:57)
[2020-11-13] MEDS: DULOXETINE 30 MG CAPSULE.DR PO SCH ×2 (08:57→21:23)
[2020-11-13] MEDS: CARBAMAZEPINE 200 MG TABLET PO SCH ×3 (08:57→21:23)
[2020-11-13 12:23] VITALS: BP 99/61
[2020-11-13 21:19] VITALS: BP 108/59
[2020-11-14 00:33] VITALS: BP 110/69
[2020-11-14] MEDS: PREGABALIN 150 MG CAPSULE PO SCH ×4 (04:57→20:43)
[2020-11-14] MEDS: CARVEDILOL 6.25 MG TABLET PO SCH ×2 (04:58→17:16)
[2020-11-14] MEDS: TIZANIDINE 4MG TABLET PO SCH ×3 (04:58→20:43)
[2020-11-14] MEDS: METHADONE 5 MG TABLET PO SCH ×2 (04:58→17:17)
[2020-11-14 08:20] VITALS: BP 112/76
[2020-11-14] MEDS: DULOXETINE 30 MG CAPSULE.DR PO SCH ×2 (08:22→20:43)
[2020-11-14] MEDS: SENNA/DOCUSATE TABLET PO SCH (08:22)
[2020-11-14] MEDS: RIVAROXABAN 20 MG TABLET PO SCH (08:22)
[2020-11-14] MEDS: OXYcodone IR 5MG TABLET PO PRN ×3 (08:22→20:43)
[2020-11-14] MEDS: CARBAMAZEPINE 200 MG TABLET PO SCH ×3 (08:22→20:43)
[2020-11-14 10:09] VITALS: BP 108/67
[2020-11-14 14:17] VITALS: BP 119/65
[2020-11-14 19:30] VITALS: BP 130/70
[2020-11-14] MEDS: TEMAZEPAM 15 MG CAPSULE PO PRN (22:40)
[2020-11-15] VITALS: BP 112/67
[2020-11-15] MEDS: OXYcodone IR 5MG TABLET PO PRN ×4 (03:32→20:19)
[2020-11-15] MEDS: PREGABALIN 150 MG CAPSULE PO SCH ×4 (05:55→20:20)
[2020-11-15] MEDS: METHADONE 5 MG TABLET PO SCH ×2 (05:55→17:59)
[2020-11-15] MEDS: TIZANIDINE 4MG TABLET PO SCH ×3 (05:55→20:20)
[2020-11-15] MEDS: CARVEDILOL 6.25 MG TABLET PO SCH ×2 (05:56→17:59)
[2020-11-15 05:59] LABS: BASOPHILS % (AUTO) 2 % (0-1); EOSINOPHILS % (AUTO) 9 % (1-7); LYMPHOCYTES % (AUTO) 24 % (22-44); MEAN CORPUSCULAR HEMOGLOBIN 29.7 pg (27.5-34.5); MEAN CORPUSCULAR HGB CONC 33.1 g/dL (33.2-36.2); MONOCYTES % (AUTO) 10 % (2-9); NEUTROPHILS % (AUTO) 55 % (42-75); PLATELET COUNT 218 x10^3/uL (130-400); RED BLOOD COUNT 4.37 x10^6/uL (4.38-5.82); RED CELL DISTRIBUTION WIDTH 15.1 % (9.4-14.8)
[2020-11-15 06:09] LABS: ANION GAP 4 mmol/L (5-15); CALCIUM 9.4 mg/dL (8.5-10.1); CHLORIDE 105 mmol/L (98-107); CREATININE 0.59 mg/dL (0.7-1.3)
[2020-11-15 06:56] VITALS: BP 107/62
[2020-11-15] MEDS: CARBAMAZEPINE 200 MG TABLET PO SCH ×3 (08:58→20:20)
[2020-11-15] MEDS: DULOXETINE 30 MG CAPSULE.DR PO SCH ×2 (08:58→20:20)
[2020-11-15] MEDS: SENNA/DOCUSATE TABLET PO SCH (08:58)
[2020-11-15] MEDS: RIVAROXABAN 20 MG TABLET PO SCH (08:59)
[2020-11-15 12:33] VITALS: BP 119/65
[2020-11-15 17:58] VITALS: BP 106/69
[2020-11-15] MEDS: BISACODYL 10 MG SUPP PR PRN (18:09)
[2020-11-15 18:50] VITALS: BP 114/65
[2020-11-15] MEDS: TEMAZEPAM 15 MG CAPSULE PO PRN (23:01)
[2020-11-16 02:33] VITALS: BP 112/60
[2020-11-16 05:55] VITALS: BP 118/70
[2020-11-16] MEDS: CARVEDILOL 6.25 MG TABLET PO SCH ×2 (05:57→17:55)
[2020-11-16] MEDS: PREGABALIN 150 MG CAPSULE PO SCH ×4 (05:57→21:28)
[2020-11-16] MEDS: TIZANIDINE 4MG TABLET PO SCH ×3 (05:57→21:28)
[2020-11-16] MEDS: METHADONE 5 MG TABLET PO SCH ×2 (05:57→17:55)
[2020-11-16 07:12] VITALS: BP 108/66
[2020-11-16] MEDS ORDERED: LACT20SO13 PO (09:12)
[2020-11-16] MEDS ORDERED: CARB200T4 PO (09:12)
[2020-11-16] MEDS ORDERED: CARV6.2512 PO (09:12)
[2020-11-16] MEDS ORDERED: OXYC5TAB98 PO (09:12)
[2020-11-16] MEDS ORDERED: PREG150C PO (09:12)
[2020-11-16] MEDS ORDERED: RIVA20TA PO (09:12)
[2020-11-16] MEDS ORDERED: METH5TAB2 PO (09:12)
[2020-11-16] MEDS ORDERED: DULO30CA2 PO (09:12)
[2020-11-16] MEDS: RIVAROXABAN 20 MG TABLET PO SCH (10:15)
[2020-11-16] MEDS: LACTULOSE 20 GM/30 ML UDC PO SCH ×2 (10:15→20:21)
[2020-11-16] MEDS: OXYcodone IR 5MG TABLET PO PRN ×3 (10:15→20:33)
[2020-11-16] MEDS: DULOXETINE 30 MG CAPSULE.DR PO SCH ×2 (10:15→21:28)
[2020-11-16] MEDS: SENNA/DOCUSATE TABLET PO SCH (10:16)
[2020-11-16] MEDS: CARBAMAZEPINE 200 MG TABLET PO SCH ×3 (10:16→21:28)
[2020-11-16 12:19] VITALS: BP 113/70
[2020-11-16] MEDS: BISACODYL 10 MG SUPP PR PRN (14:30)
[2020-11-16 19:11] VITALS: BP 119/74
[2020-11-16] MEDS: TEMAZEPAM 15 MG CAPSULE PO PRN (21:27)
[2020-11-17 00:25] VITALS: BP 108/67
[2020-11-17] MEDS: TIZANIDINE 4MG TABLET PO SCH ×3 (05:22→20:32)
[2020-11-17] MEDS: OXYcodone IR 5MG TABLET PO PRN ×3 (05:22→20:43)
[2020-11-17 06:08] VITALS: BP 113/68
[2020-11-17] MEDS: PREGABALIN 150 MG CAPSULE PO SCH ×4 (06:09→20:32)
[2020-11-17] MEDS: METHADONE 5 MG TABLET PO SCH ×2 (06:09→18:20)
[2020-11-17] MEDS: CARVEDILOL 6.25 MG TABLET PO SCH ×2 (06:09→18:19)
[2020-11-17] MEDS: DULOXETINE 30 MG CAPSULE.DR PO SCH ×2 (08:45→20:32)
[2020-11-17] MEDS: SENNA/DOCUSATE TABLET PO SCH (08:45)
[2020-11-17] MEDS: RIVAROXABAN 20 MG TABLET PO SCH (08:45)
[2020-11-17] MEDS: CARBAMAZEPINE 200 MG TABLET PO SCH ×3 (08:45→20:32)
[2020-11-17] MEDS ORDERED: LACTULOSE 20 GM/30 ML UDC PO PRN (09:00)
[2020-11-17] MEDS ORDERED: TIZA4TAB2 PO ×2 (10:45→12:30)
[2020-11-17] MEDS ORDERED: CARB200T4 PO (12:30)
[2020-11-17] MEDS ORDERED: OXYC5TAB98 PO (12:30)
[2020-11-17] MEDS ORDERED: PREG150C PO (12:30)
[2020-11-17 16:00] VITALS: BP 121/69
[2020-11-17 18:16] VITALS: BP 106/69
[2020-11-17 20:07] VITALS: BP 116/67
[2020-11-17] MEDS: TEMAZEPAM 15 MG CAPSULE PO PRN (22:46)
[2020-11-18 03:23] VITALS: BP 119/68
[2020-11-18] MEDS: TIZANIDINE 4MG TABLET PO SCH (04:20)
[2020-11-18] MEDS: OXYcodone IR 5MG TABLET PO PRN (04:21)
[2020-11-20] MEDS ORDERED: SODIUM CHLORIDE 0.9% 1,000ML IVBOLUS ONE (10:00)
== END 2020-11-18 04:30 | DRG 97 ==
LOC: ED 02:17 → EDIP 03:03 → 3N 03:45 → 4WST 10-20 10:24 → 4NW 10-26 14:33 → 3N 10-30 12:24
PROVIDERS: ADMIT Family Medicine; ATTEND Hospitalist
DX: G37.3 Acute transverse myelitis in demyelinating disease of central nervous system (principal); I26.99 Other pulmonary embolism without acute cor pulmonale; J18.9 Pneumonia, unspecified organism; K59.2 Neurogenic bowel, not elsewhere classified; R53.81 Other malaise; G82.20 Paraplegia, unspecified; F43.22 Adjustment disorder with anxiety; F17.210 Nicotine dependence, cigarettes, uncomplicated; I10 Essential (primary) hypertension; N31.9 Neuromuscular dysfunction of bladder, unspecified; N50.89 Other specified disorders of the male genital organs; K59.00 Constipation, unspecified; G89.29 Other chronic pain; M54.5 Low back pain; Z20.822 Contact with and (suspected) exposure to COVID-19; R33.9 Retention of urine, unspecified; M54.2 Cervicalgia; I95.9 Hypotension, unspecified; F12.90 Cannabis use, unspecified, uncomplicated; E86.1 Hypovolemia; Z51.5 Encounter for palliative care; Z63.8 Other specified problems related to primary support group; Z79.01 Long term (current) use of anticoagulants; Z80.8 Family history of malignant neoplasm of other organs or systems; Z86.711 Personal history of pulmonary embolism; Z90.49 Acquired absence of other specified parts of digestive tract
CPT/HCPCS: 36415; 71045; 71275; 80048; 80053; 80202; 83735; 83880; 84145; 85025; 85379; 85520; 85651; 87040; 93005; 96374; G0378; J0696; J1644; J1885; J2405; J2543; J3370; J7060; Q0162; Q9967; U0005; J7030; J7040; J7050; J7120; U0003